=== PATIENT | female | born 1995 | race Caucasian/White ===

== ENCOUNTER 2021-01-31 14:39 | Outpatient (CLI) | payer OTHER, SELFPAY ==
--- NOTE | ~2021-01-31 | XR_ITS ---
EXAMINATION: XR ankle RT 2V DATE: 01/31/2021 14:57 INDICATION: Right ankle pain. TECHNIQUE: 2 views of right ankle were obtained. COMPARISON: None. FINDINGS: Bone alignment is normal. No fracture. Joint spaces are well maintained. IMPRESSION: 1. Normal right ankle. Reviewed, dictated and finalized at location A. IMPRESSION: 1. Normal right ankle.
== END 2021-01-31 14:40 | disposition home or self-care (01) ==
PROVIDERS: PCP Nurse Practitioner Family; Visit Provider Nurse Practitioner Family
DX: M25.571 Pain in right ankle and joints of right foot (principal)
CPT/HCPCS: 73600

== ENCOUNTER 2021-04-19 11:43 | Outpatient (CLI) | payer OTHER, SELFPAY ==
[2021-04-23 13:03] LABS: SARS-CoV-2 RNA PCR Negative (Negative)
== END 2021-04-19 11:44 | disposition home or self-care (01) ==
LOC: CHSLAB 11:45
PROVIDERS: PCP Nurse Practitioner Family; Visit Provider Nurse Practitioner Family
DX: Z20.822 Contact with and (suspected) exposure to COVID-19 (principal)
CPT/HCPCS: C9803; U0003; U0005

== ENCOUNTER 2022-12-12 12:14 | Outpatient (NON) | payer OTHER, SELFPAY ==
[2022-12-12 12:27] LABS: Appearance Urine Clear (Clear); Bilirubin Urine Negative (Negative); Blood Urine Negative (Negative); Color Urine Light Yellow (Yellow); Glucose Urine UA Negative (Negative); Ketones Urine Negative (Negative); Leukocyte Esterase Ur Trace LEU/UL (Negative); Nitrate Urine Negative (Negative); Protein Urine Negative (Negative); Urobilinogen Urine 0.2 mg/dL (0.2-1.0); pH Urine 6.5 (5.0-8.0)
[2022-12-12 12:35] LABS: Add Urine Microscopic? YES; Bacteria Urine None seen /hpf; RBC Urine 0-2 /hpf (0-2); Squamous Epithelial Cell Urine Few /hpf (Few); WBC Urine 0-3 /hpf (0-3)
== END 2022-12-12 12:15 | disposition home or self-care (01) ==
LOC: CHSLAB 12:17
PROVIDERS: Visit Provider Nurse Practitioner Family
DX: N89.8 Other specified noninflammatory disorders of vagina (principal); N39.0 Urinary tract infection, site not specified
CPT/HCPCS: 81001; 87070

== ENCOUNTER 2023-07-18 09:44 | Emergency (ER) | payer OTHER, SELFPAY ==
[2023-07-18 09:58] VITALS: BP 114/80; PULSE 98; RESP 16; TEMP 36.7; O2SAT 100
--- NOTE | 2023-07-18 10:06 | ED.URI ---
HPI - URI/Sore Throat General Chief Complaint: Upper Respiratory Infection Stated Complaint: UPPER RESP SYMPTOMS Source: patient Mode of arrival: ambulatory Limitations: no limitations History of Present Illness HPI Narrative: 27-year-old female presented for complaint of sinus pressure and congestion along with cough for 3 weeks. She endorses feeling better for few days but symptoms returned this week. Cough is productive of yellow sputum. Endorses occasional ear pressure and headache. Taking Tylenol cold and Sinus for symptoms. Denies sick contacts. Patient returned from [facility] with GI infection prior to symptom onset. Denies sob, wheezing, n/v/d/f/c. Related Data Allergies Allergy/AdvReac Type Severity Reaction Status Date / Time No Known Allergies Allergy Verified 07/18/23 09:57 Review of Systems Review of Systems: CONSTITUTIONAL: Denies body aches, fever, chills, or sweats. EYES: Denies visual changes, redness, or discharge. ENT: Reports rhinorrhea, congestion, Denies sore throat, or otalgia. CARDIOVASCULAR: Denies chest pain, palpitations, or edema. RESPIRATORY: Reports cough, denies sob, wheezing. GASTROINTESTINAL: Denies abdominal pain, nausea, vomiting, or diarrhea. GENITOURINARY: Denies dysuria or hematuria. SKIN: Denies rash, itching, or wounds. MUSCULOSKELETAL: Denies back pain, joint pain, or myalgia. NEUROLOGIC: Denies headache, numbness, tingling, or weakness. PSYCH: Denies depression or anxiety. All systems reviewed & are unremarkable except as noted in HPI and below PMFSH Past Medical History Medical History Anxiety Herpes Kyphosis Pre-eclampsia Family History Family History Grandparent Macular degeneration Arthritis Social History Social History Smoking status: Never smoker Second hand tobacco smoke exposure: No Substance use: never Gender identity (if verbalized by the patient): Female Spiritual care concerns: No Comments At time of signature, I have reviewed and agree with nursing past medical, surgical, social and family history unless otherwise noted. Please see nursing chart for further information. There is no relevant family history pertinent to the presenting complaint Exam Narrative: GENERAL: Well-appearing, in no acute distress. EYES: EOMI. No redness or drainage. Conjunctivae normal. ENT: Mucous membranes pink and moist. No rhinorrhea. TMs normal bilaterally. Throat normal. Uvula midline. NECK: Normal AROM. Supple. CHEST: No respiratory distress. Lungs clear to all sanchez. HEART: Regular rate and rhythm. No murmur appreciated. ABDOMEN: Soft, nontender, nondistended, normal active bowel sounds. EXTREMITIES: Normal range of motion. No edema. SKIN: Warm, dry, no rash. Capillary refill normal. Normal skin turgor. NEURO: Alert and oriented x3. Gait steady. PSYCH: Normal affect. Course Course Emergency Course: Patient is aware of diagnosis, understands and agrees to treatment plan. Anticipatory guidance given. Patient agrees to follow-up as directed and is aware of reasons to seek care at the emergency department. Portions of this record may have been created with voice recognition software Level of Care: Express Care Visit Vital Signs Vital signs: Vital Signs Temperature 98.1 F 07/18/23 09:58 Pulse Rate 98 07/18/23 09:58 Respiratory Rate 16 07/18/23 09:58 Blood Pressure 114/80 07/18/23 09:58 Pulse Oximetry 100 07/18/23 09:58 Temperature 98.1 F 07/18/23 09:58 Pulse Rate 98 07/18/23 09:58 Respiratory Rate 16 07/18/23 09:58 Blood Pressure 114/80 07/18/23 09:58 Pulse Oximetry 100 07/18/23 09:58 MDM - URI/Sore Throat MDM Narrative Medical decision making narrative: Discussed physical exam findings. Advised supp
== END 2023-07-18 10:20 | disposition home or self-care (01) ==
PROVIDERS: Emergency Provider Nurse Practitioner Family; PCP Family Medicine
DX: J06.9 Acute upper respiratory infection, unspecified (principal)
CPT/HCPCS: 99213; G0463

== ENCOUNTER 2024-06-27 09:26 | Outpatient (CLI) | payer OTHER, SELFPAY ==
[2024-06-27 10:23] LABS: Alanine Aminotransferase 28 U/L (14-59); Albumin Level 3.8 g/dL (3.4-5.0); Alkaline Phosphatase 61 U/L (46-116); Anion Gap 10 mmol/L (4-12); Aspartate Amino Transferase 12 U/L (15-37); Bilirubin,Total 1.4 mg/dL (0.00-1.00); Blood Urea Nitrogen 14 mg/dL (7-18); Carbon Dioxide 27 mmol/L (21-32); Chloride 106 mmol/L (98-108); Estimated Glomerular Filt Rate > 60; Glucose 85 mg/dL (70-99); Osmolality Calculated 295 mOsm/kg (285-295); Potassium 4.9 mmol/L (3.5-5.1); Sodium 143 mmol/L (136-145); Total Protein 6.8 g/dL (6.4-8.2)
== END 2024-06-27 09:27 | disposition home or self-care (01) ==
LOC: CHSLAB 09:28
PROVIDERS: PCP Nurse Practitioner Family; Visit Provider Nurse Practitioner Family
DX: R17 Unspecified jaundice (principal)
CPT/HCPCS: 36415; 80053

== ENCOUNTER 2024-09-16 07:53 | Outpatient (CLI) | payer OTHER, SELFPAY ==
--- NOTE | ~2024-09-16 | US_ITS ---
US abdomen complete EXAMINATION: US Abdomen Complete INDICATION: Jaundice. PROCEDURE: Realtime High Resolution abdomen ultrasound. COMPARISON: No prior studies for comparison FINDINGS: Gallbladder within normal limits. No gallstones, pericholecystic fluid, gallbladder wall t hickening or biliary dilatation. Common bile duct measures 4 mm. Liver echotexture within normal limits without focal mass. Pancreatic head appears prominent, althoug h no discrete mass identified.. Spleen is unremarkeable. Renal echotexture is within normal limits b ilaterally without hydronephrosis, contour deforming mass or renal stone. Right kidney measures 10.3 cm. Left kidney measures 10.8 cm. Visualized aspects of the aorta and IVC are within normal limits. Portal vein is patent. No sonograph ic Moore's sign indicated by the technologist. IMPRESSION: 1: Normal abdominal ultrasound. Reviewed, dictated and finalized at location A. 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
== END 2024-09-16 07:54 | disposition home or self-care (01) ==
LOC: CHSIMG 07:54
PROVIDERS: PCP Nurse Practitioner Family; Visit Provider Nurse Practitioner Family
DX: R11.0 Nausea (principal); R17 Unspecified jaundice
CPT/HCPCS: 76700

== ENCOUNTER 2024-09-26 08:53 | Outpatient (CLI) | payer OTHER, SELFPAY ==
[2024-09-26 09:09] LABS: Hematocrit 45.5 % (35.0-49.0); Hemoglobin 15.1 g/dL (12.0-15.0); Mean Corpuscular HGB Conc 33.2 g/dL (32-36); Mean Corpuscular Volume 87.5 fL (78.0-102.0); Mean Platelet Volume 9.4 fl (9.2-11.8); Platelet Count Result 256 K/mm3 (150-420); Red Cell Distribution Width 12.5 % (11.6-14.4); White Blood Count 5.4 K/mm3 (4.8-10.8)
--- OUTSIDE RECORDS SUMMARY | 2024-09-26 09:18 | XMS_ITS | Data Portability ---
Author Organization [facility] Address [address] [place] [address] Care Team Providers Care Uniform Force Captain Name Role Phone EVON LO Primary Care Provider Assessment Encounter Date Assessment Date Assessment LastModified by Organization Details LastModified Time 10/29/2020 10/29/2020 Annual gynecological exam performed. Patient will come back in a year unless there are new symptoms. [email or web address] Not available 10/25/2020 11:39:19 Plan of Treatment Reminders Order Date Submit Date Provider Last Modified By Organization Details Last Modified Time Details Appointments None recorded. Lab CMP, serum or plasma 2020 021 [facility] (Lab), [address] [place], [address], 21:43:10 CBC 2020 021 [facility] (Lab), [address] [place], [address], 2 05:00:31 lipid panel, serum 2020 021 [facility] (Lab), [address] [place], [address], 1 15:31:18 TSH, serum or plasma 2020 021 [facility] (Lab), [address] [place], [address], 2 05:00:31 vitamin D, 25-hydroxy, total, serum 2020 [facility] (Lab), [address], [place], [address], 21:43:12 Referral None recorded. Procedures None recorded. Surgeries None recorded. Imaging US, transvagina l 2020 [facility], [facility] [address], [address], [place], [address], 14:49:49 Medication Orders None recorded. Patient TargetsNo targets recorded. Patient InstructionsNo instructions recorded. Reason for Referral None Reported. Results Created Date Observation Date Name Description Value Unit Range Abnormal Flag Note LastModifiedBy Organization Detail LastModifiedTime 10/30/1910/29/2020 image guide d Pap, refle x HPV if ASCUS only image guided Pap, reflex HPV ASCUS only SEE RESULT S BELOW CASE REPOR T: Cytol ogy Gynec ologi felicitas Repor t Case: [id number] Autho carlos g Provi luis e: Jessica Bass, JEFF Colle cted: 10/29 0956 Order ing Locat ion: [place] Patho logy Recei patience: 10/30 1533 First Scree n: Hellen Fong , CT Speci men: Scree chico Pap - Image d, Cervi x STATE MENT OF ADEQU ACY: Satis facto ry for evalu ation Trans forma tion zone compo nent prese nt FINAL DIAGN OSIS: Negat shila for Intra epith elial Lesio n or Jeyson rader (NIL) Funga l organ isms morph ologi ruth ann consi stent with Mari da spp Elect adilene martinez deborah d by Hellen Fong CT on 021 at 2:18 PM ----- ----- ----- ----- ----- ----- ----- ----- ----- ----- ----- ----- ----- ----- ----- ----- ----- ----- - CHART ABLE COMME NT: Note: This speci men was revie wed by a Cytot echno logis t and/o r Patho logis t (as indic ated in this repor t) after evalu ation using the Thinp rep Imagi ng Syste m. CLINI FELICITAS INFOR MATIO N: Menst rual Statu s: LMP (if appli cable ): Clini felicitas Histo ry/Pr eviou s Pap: Type of Neopl serena (if appli cable ): Other Histo ry: Hormo ale (if appli cable ): PAP EDUCA ROSA MARAI L NOTE: The Pap Test is a scree chico test with an inher ent false negat shila rate. Liqui d-bas e sampl ing may decre ase, but will not elimi noah, false negat shila resul ts. A negat shila resul t does not precl ude the prese nce and/o r devel opmen t of disea se, since the prese nce of abnor mal cells in the sampl e depen ds on the locat ion of the lesio n and sampl ing techn ique. Lucie nued regul ar scree chico is the best metho d of cance r preve ntion . If repor vin cytol ogic findi ng do not corre late with physi feilcitas and/o r histo rical findi ngs, furth er inves tigat ion is recom cameron d, as clini ruth ann russ nted. Not Available [facility] (Lab) [address] [facility], [place], [address], 10/31/2020 15:21:01 10/31/19 21 10/30/2020 vitam in D, 25-oh (tota l D2/D3 ) vitamin D, 25-hydroxy, total 25.5 NG/mL 30-80 low NOTE: Defic iency : <20 ng/mL Insuf ficie ncy: 20-29 ng/mL Optim um Level : 30-80 ng/mL Possi ble Toxic ity: >80 ng/mL Most patie nts with toxic ity have level s >150 ng/mL . Not Available [facility] (Lab) [address], [address], 10/31/2020 21:43:12 10/31/19 21 10/30/2020 CMP(c ompre hensi ve metab olic panel ) sodium 140 mmol/ L 136-14 5 Not Available [facility] (Lab) [address], [address], 10/31/2020 21:43:10 10/31/19 21 10/30/2020 CMP(c ompre hensi ve metab olic panel ) potassium 4.3 mmol/ L 3.5-5. 3 Not Available [facility] (Lab) [facility] [address] [place], [address], 10/31/2020 21:43:10 10/31/19 21 10/30/2020 CMP(c ompre hensi ve metab olic panel ) chloride 103 mmol/ L 98-107 Not Available [facility] (Lab) [address] [place], [address], 10/31/2020 21:43:10 10/31/19 21 10/30/2020 CMP(c ompre hensi ve metab olic panel ) carbon dioxide 26 mmol/ L 23-31 Not Available [facility] (Lab) [address] [place], [address], 10/31/2020 21:43:10 10/31/19 21 10/30/2020 CMP(c ompre hensi ve metab olic panel ) anion gap 11 mmol/ L 8-16 Not Available [facility] (Lab) [address] [place], [address], 10/31/2020 21:43:10 10/31/19 21 10/30/2020 CMP(c ompre hensi ve metab olic panel ) blood urea nitrogen 14 mg/dL (based on legal sex) 6-20 Not Available [facility] (Lab) [address], [place], [address], 10/31/2020 21:43:10 10/31/19 21 10/30/2020 CMP(c ompre hensi ve metab olic panel ) creatinine 0.80 mg/dL (based on legal sex) .5-1.2 Not Available [facility] (Lab) [address] [place], [address], 10/31/2020 21:43:10 10/31/19 21 10/30/2020 CMP(c ompre hensi ve metab olic panel ) GFR () 104 mL/mi n/1.7 3_m2 60-300 Not Available [facility] (Lab) [address], [place], [address], 10/31/2020 21:43:10 10/31/19 21 10/30/2020 CMP(c ompre hensi ve metab olic panel ) GFR (others) 86 mL/mi n/1.7 3_m2 60-300 Not Available [facility] (Lab) [address] [place], [address], 10/31/2020 21:43:10 10/31/19 21 10/30/2020 CMP(c ompre hensi ve metab olic panel ) calcium 9.2 mg/dL 8.4-10 .5 Not Available [facility] (Lab) [address], [place], [address], 10/31/2020 21:43:10 10/31/19 21 10/30/2020 CMP(c ompre hensi ve metab olic panel ) glucose 74 mg/dL 70-99 Not Available [facility]) [address] [place], [address], 10/31/2020 21:43:10 10/31/19 21 10/30/2020 CMP(c ompre hensi ve metab olic panel ) protein, total 6.4 g/dL 6.0-8. 3 Not Available [facility] ([facility]) [address], [place], [address], 10/31/2020 21:43:10 10/31/19 21 10/30/2020 CMP(c ompre hensi ve metab olic panel ) albumin 4.6 g/dL 3.5-5. 0 Not Available [facility] ([facility]) [address] [place], [address], 10/31/2020 21:43:10 10/31/19 21 10/30/2020 CMP(c ompre hensi ve metab olic panel ) ALT 14 units /L 9-43 Not Available [facility] ([facility]) [address], [place], [address], 10/31/2020 21:43:10 10/31/19 21 10/30/2020 CMP(c ompre hensi ve metab olic panel ) alkaline phosphatase 74 units /L 35-129 Not Available [facility] ([facility]) [address], [place], [address], 10/31/2020 21:43:10 10/31/19 21 10/30/2020 CMP(c ompre hensi ve metab olic panel ) AST 19 units /L (based on docume nted legal sex) 11-32 Not Available [facility] ([facility]) [address] [place], [address], 10/31/2020 21:43:10 10/31/19 21 10/30/2020 CMP(c ompre hensi ve metab olic panel ) bilirubin, total 1.6 mg/dL 0.0-1. 0 high Not Available [facility] (Lab) [address], [place], [address], 10/31/2020 21:43:10 10/31/19 21 10/30/2020 TSH TSH 1.54 uIU/m L 0.30-5 .00 Not Available [facility] (Lab) [address], [place], [address], 10/31/2020 21:20:56 10/31/19 21 10/30/2020 lipid panel , blood total cholesterol 163 mg/dL 0-199 Not Available [facility] (Lab) [address], [place], [address], 10/31/2020 21:13:52 10/31/19 21 10/30/2020 lipid panel , blood triglyceride s 81 mg/dL 0-150 NCEP Refer ence Value s for Trigl yceri tammie: Prabha l: <150 mg/dL Borde rline High: 150 - 199 mg/dL High: 200 - 499 mg/dL Very High: >/= 500 mg/dL Not Available [facility] (Lab) [address], [place], [address], 10/31/2020 21:13:52 10/31/19 21 10/30/2020 lipid panel , blood HDL cholesterol 50 mg/dL 40-240 Not Available [facility] (Lab) [address], [place], [address], 10/31/2020 21:13:52 10/31/19 21 10/30/2020 lipid panel , blood LDL cholesterol 97 mg/dL 0-99 Cutof f value s recom cameron d by the Natio nal Aminata stero l Educa tion Progr am: XOCHITL ABLE: Aminata stero l <200 mg/dL LDL <100 mg/dL BORDE RLINE : Aminata stero l 200-2 39 mg/dL LDL 101-1 59 mg/dL HIGHE R RISK: Aminata stero l >240 mg/dL LDL >160 mg/dL , HDL <40 mg/dL Not Available [facility] (Lab) [facility] [address], [place], [address], 10/31/2020 21:13:52 10/31/19 21 10/30/2020 lipid panel , blood non-HDL cholesterol 113 mg/dL 0-129 A reaso nable goal for non-H DL aminata stero l is one that is 30 mg/dL highe r than the LDL aminata stero l goal. Not Available [facility] (Lab) [facility] [address], [place], [address], 10/31/2020 21:13:52 10/31/19 21 10/30/2020 lipid panel , blood chol/HDL ratio 3.3 . 0.0-5. 0 Not Available [facility] (Lab) [address], [place], [address], 10/31/2020 21:13:52 10/31/19 21 10/30/2020 CBC w/ auto diff WBC 5.5 10'3/ uL 3.6-10 .2 Not Available [facility] (Lab) [facility] [address] [place], [address], 10/31/2020 08:54:47 10/31/19 21 10/30/2020 CBC w/ auto diff RBC 4.90 10'6/ uL (based on docume nted legal sex) 4.10-5 .30 Not Available [facility] (Lab) [facility] [address], [place], [address], 10/31/2020 08:54:47 10/31/19 21 10/30/2020 CBC w/ auto diff HGB 14.3 g/dL (based on docume nted legal sex) 11.9-1 5.8 Not Available [facility] (Lab) [address] [place], [address], 10/31/2020 08:54:47 10/31/19 21 10/30/2020 CBC w/ auto diff HCT 45.3 % (based on docume nted legal sex) 37.4-4 8.3 Not Available [facility] (Lab) [address] [place], [address], 10/31/2020 08:54:47 10/31/19 21 10/30/2020 CBC w/ auto diff MCV 92.0 fL 82.0-9 9.0 Not Available [facility] (Lab) [address] [place], [address], 10/31/2020 08:54:47 10/31/19 21 10/30/2020 CBC w/ auto diff MCH 29.0 pg 27.0-3 3.0 Not Available [facility] (Lab) [address] [place], [address], 10/31/2020 08:54:47 10/31/19 21 10/30/2020 CBC w/ auto diff MCHC 32.0 g/dL 32.0-3 6.0 Not Available [facility] (Lab) [address] [place], [address], 10/31/2020 08:54:47 10/31/19 21 10/30/2020 CBC w/ auto diff RDW 13.0 % 11.0-1 5.0 Not Available [facility] ([facility]) [address] [place], [address], 10/31/2020 08:54:47 10/31/19 21 10/30/2020 CBC w/ auto diff plt 242 10'3/ uL 150-45 0 Not Available [facility] ([facility]) [address] [place], [address], 10/31/2020 08:54:47 10/31/19 21 10/30/2020 CBC w/ auto diff MPV 10.8 fL Not Available [facility] ([facility]) [address] [place], [address], 10/31/2020 08:54:47 10/31/19 21 10/30/2020 CBC w/ auto diff NRBC's 0.00 % 0 Not Available [facility] ([facility]) [address] [place], [address], 10/31/2020 08:54:47 10/31/19 21 10/30/2020 CBC w/ auto diff absolute NRBCs 0.0 10'3/ uL 0 Not Available [facility] (Lab) [address] [place], [address], 10/31/2020 08:54:47 10/31/19 21 10/30/2020 CBC w/ auto diff neutrophils 51.0 % 37.0-7 2.0 Not Available [facility] ([facility]) [address] [place], [address], 10/31/2020 08:54:47 10/31/19 21 10/30/2020 CBC w/ auto diff lymphocytes 37.0 % 16.0-4 8.0 Not Available [facility] ([facility]) [facility] [address], [place], [address], 10/31/2020 08:54:47 10/31/19 21 10/30/2020 CBC w/ auto diff monocytes 9.0 % 4.0-14 .0 Not Available [facility] (Lab) [address], [place], [address], 10/31/2020 08:54:47 10/31/19 21 10/30/2020 CBC w/ auto diff eosinophils 2.0 % 0.0-9. 0 Not Available [facility] (Lab) [address], [place], [address], 10/31/2020 08:54:47 10/31/19 21 10/30/2020 CBC w/ auto diff basophils 1.0 % 0.0-2. 0 Not Available [facility] (Lab) [address] [place], [address], 10/31/2020 08:54:47 10/31/19 21 10/30/2020 CBC w/ auto diff immature granulocytes 0.0 % no define d refere nce range Not Available [facility] (Lab) [address] [place], [address], 10/31/2020 08:54:47 10/31/19 21 10/30/2020 CBC w/ auto diff absolute neutrophils 2.8 10'3/ uL 1.1-6. 0 Not Available [facility] (Lab) [address] [place], [address], 10/31/2020 08:54:47 10/31/19 21 10/30/2020 CBC w/ auto diff absolute lymphocytes 2.1 10'3/ uL 0.7-3. 4 Not Available [facility] (Lab) [address] [place], [address], 10/31/2020 08:54:47 10/31/19 21 10/30/2020 CBC w/ auto diff absolute monocytes 0.5 10'3/ uL 0.3-1. 0 Not Available [facility] (Lab) [address] [place], [address], 10/31/2020 08:54:47 10/31/19 21 10/30/2020 CBC w/ auto diff absolute eosinophils 0.1 10'3/ uL 0.0-0. 6 Not Available [facility] (Lab) [address] [place], [address], 10/31/2020 08:54:47 10/31/19 21 10/30/2020 CBC w/ auto diff absolute basophils 0.0 10'3/ uL 0.0-0. 1 Not Available [facility] (Lab) [address] [place], [address], 10/31/2020 08:54:47 10/31/19 21 10/30/2020 CBC w/ auto diff absolute immature granulocytes 0.00 10'3/ uL 0.00-0 .10 021 7:51 AM: P indic ates parti al resul ts on a panel have been relea sed. Addit ional resul ts will follo w. 021 7:51 AM: This resul t has been final verif ied. No addit ional or guy ed resul ts are expec vin. Not Available [facility] (Lab) [address] [place], [address], 10/31/2020 08:54:47 12/24/19 22 12/23/2021 IMAGE GUIDE D PAP, REFLE X HPV IF ASCUS ONLY image guided Pap, reflex HPV ASCUS only SEE RESULT S BELOW CASE REPOR T: Cytol ogy Gynec ologi felicitas Repor t Case: [id number] Autho carlos delgado Provi luis e: Jessica Bass, JEFF Colle cted: 12/23 1628 Order ing Locat ion: [place] Patho tashia Recei patience: 12/24 0148 First Scree n: Marcelo anders, Juan atkins, CT Speci men: Scree chico Pap - Image d, Cervi x STATE MENT OF ADEQU ACY: Satis facto ry for evalu ation Trans forma tion zone compo nent prese nt FINAL DIAGN OSIS: Negat shila for Intra epith elial Lesio n or Jeyson rader (NIL) . Elect libertydebbie martinez deborah d by Marcelo anders, Juan atkins, CT on 022 at 1:32 PM ----- ----- ----- ----- ----- ----- ----- ----- ----- ----- ----- ----- ----- ----- ----- ----- ----- ---- COMME NT: Note: This speci men was revie wed by a Cytot echno logis t and/o r Patho logis t (as indic ated in this repor t) after evalu ation using the Thinp rep Imagi ng Syste m. CLINI FELICITAS INFOR MATIO N: Menst rual Statu s: LMP (if appli cable ): Clini felicitas Histo ry/Pr eviou s Pap: Type of Neopl serena (if appli cable ): Signi fican t Clini felicitas Findi ngs: Other Histo ry: Hormo ale (if appli cable ): PAP EDUCA ROSA MARIA L NOTE: The Pap Test is a scree chico test with an inher ent false negat shila rate. Liqui d-bas ed sampl ing may decre ase, but will not elimi noah, false negat shila resul ts. A negat shila resul t does not precl ude the prese nce and/o r devel opmen t of disea se, since the prese nce of abnor mal cells in the sampl e depen ds on the locat ion of the lesio n and sampl ing techn ique. Lucie nued regul ar scree chico is the best metho d of cance r preve ntion . If repor vin cytol ogic findi ng do not corre late with physi felicitas and/o r histo rical findi ngs, furth er inves tigat ion is recom cameron d, as clini ruth ann russ nted. Not Available [facility] (Lab) [address], [place], [address], 12/30/2021 14:35:30 10/31/19 21 US, trans vagin al No observ ation record ed. TULIO [address], [facility], [place], [address], 11/05/2020 04:20:57 Result Notes None recorded. Problems Name Problem SNOMED Code Status Onset Date Resolution Date Notes Provider Name and Address Organization Details Recorded Time Normal pregnanc y in multigra david [id number] Completed 201910/25/2020 Encounte r for suprvsn of normal pregnanc y, third trimeste r;Deshawn ce ID: 0001 Shani diaz, [facility] 11:38:03 Educatio n Completed 201910/25/2020 Encounte r for oth general cnsl and advice on contrace ption;Pr actice ID: 0001 Shani diaz [facility] 11:37:54 Lochia finding Completed 201910/25/2020 Encounte r for routine postpart um follow-u p;Practi ce ID: 0001 Shani diaz [facility] 11:38:01 Insertio n of intraute rine contrace ptive device Completed 201910/25/2020 Encounte r for insertio n of intraute rine contrace ptive device;P ractice ID: 0001 Shani diaz, [facility] 1 11:38:00 Clinical finding Completed 201910/25/2020 Presence of (intraut erine) contrace ptive device;P ractice ID: 0001 Shani diaz, [facility] 11:37:52 Pregnanc y, childbir th and puerperi um finding Completed 201510/25/2020 Encntr for suprvsn of normal first preg, third trimeste r;Record ed Elsewher e: No Locat ion: [facility] S ource: EHR Sap Bobj Developer poppy: N Carltonti ce ID: 0001 Elvin lable Time: 11:45:00 AM Shani diaz, [facility] 11:38:11 Pregnanc y detectio n examinat ion Completed 201410/25/2020 Encounte r for pregnanc y test, result positive ;Recorde d Elsewher e: No Locat ion: [facility] S ource: EHR Sap Bobj Developer poppy: N Carltonti ce ID: 0001 Elvin lable Time: 10:00:00 AM Shani diaz, [facility] 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 11:38:19 Pregnanc y, childbir th and puerperi um finding Completed 201510/25/2020 Encounte r for supervis ion of normal first pregnanc y, second trimeste r;Record ed Elsewher e: No Locat ion: [facility] S ource: EHR Sap Bobj Developer poppy: N Carltonti ce ID: 0001 Elvin lable Time: 09:30:00 AM Shani diaz [facility] 11:38:09 Antenata l screenin g Completed 201810/25/2020 Encounte r for antenata l screenin g for nuchal transluc ency;Rec orded Elsewher e: No Locat ion: [facility] S ource: [facility] Campuso poppy: N Practi ce ID: 0001 Elvin lable Time: 08:15:00 AM Shani diaz [facility] 11:37:25 Genital herpes simplex [id number] Completed 201310/25/2020 Genital herpes;R ecorded Elsewher e: No Locat ion: [facility] S ource: [facility] Campuso poppy: N Carltonti ce ID: 0001 Elvin lable Time: 11:00:00 AM Shani diaz, [facility] 11:47:32 Pregnanc y-induce d hyperten tamiko Completed 201510/25/2020 Gestatio nal [pregnan cy-induc ed] hyperten tamiko without signific ant proteinu kady, unspecif ied trimeste r;Record ed Elsewher e: No Locat ion: [facility] S ource: [facility] Campuso poppy: N Carltonti ce ID: 0001 Elvin lable Time: 02:00:00 PM Shani diaz [facility] 11:38:13 Gestatio n period, 23 weeks [id number] Completed 201510/25/2020 23 weeks gestatio n of pregnanc y;Record ed Elsewher e: No Locat ion: [facility] S ource: [facility]uso poppy: N Practi ce ID: 0001 Elvin lable Time: 02:45:00 PM Shani diaz [facility] 11:37:[address] Concept Completed 201510/25/2020 Maternal care for oth abnormal ity and damage, unsp;Rec orded Elsewher e: No Locat ion: Jasmin miles [facility] S ource: EHR Sap Bobj Developer poppy: N Carltonti ce ID: 0001 Elvin lable Time: 02:45:00 PM Shani diaz, [facility] 1 11:38:17 Pregnanc y, childbir th and puerperi um finding Completed 201410/25/2020 Encounte r for supervis ion of normal first pregnanc y, first trimeste r;Record ed Elsewher e: No [facility] S ource: [facility]uso poppy: N Deshawn ce ID: 0001 Elvin lable Time: 04:00:00 PM Shani diaz, [facility] 11:38:07 Rubella screenin g status [id number] Completed 201810/25/2020 Encounte r for antenata l screenin g, unspecif ied;Eliceo rded Elsewher e: No [facility] S ource: EHR Sap Bobj Developer poppy: Nori Hess ce ID: 0001 Elvin lable Time: 09:30:00 AM Shani diaz, [facility] 11:38:15 Antenata l screenin g for malforma tion Completed 201810/25/2020 Encounte r for antenata l screenin g for malforma tions;Re corded Elsewher e: No [facility] S ource: EHR Sap Bobj Developer poppy: N Carltonti ce ID: 0001 Elvin lable Time: 08:15:00 AM Shani diaz, [facility] 11:37:50 Perineal lacerati on during delivery [id number] Completed 201510/25/2020 Perineal lacerati on during delivery , unspecif ied;Prac galileo ID: 0001 Shani diaz, [facility] 11:38:04 Single live [id number] Completed 201510/25/2020 Single live ;Pr actice ID: 0001 Shani Kolb emily, [facility] 11:38:16 Term pregnanc y delivere d 40657432 Completed 201910/25/2020 Encounte r for full-ter m uncompli cated delivery ;Practic e ID: 0001 Shani Kolb emily, [facility] 11:38:20 Gestatio n period, 39 weeks [id number] Completed 201910/25/2020 39 weeks gestatio n of pregnanc y;Practi ce ID: 0001 Shani Kolb emily, [facility] 11:37:58 Generali zed anxiety disorder 00716068 Active 2020 [facility]b [facility] 11:45:48 Herpes simplex 03149907 Completed 202010/25/2020 Shani Corteskarolina diaz [facility] 11:47:22 Genital herpes simplex 06780864 Active 2020 [facility] 11:47:32 Past pregnanc y history of pre-ecla mpsia [id number] 9100 Active 202001/17/20 16 Shani diaz [facility] 11:52:35 Notes:Scoliosis Problem Notes None recorded. Procedures Surgical History Date Name Laterality Status Provider Name and Address Organization Details Recorded Time 2 Date of Last Pap Smear completed Rolanda Sahu [facility] 12/23/2021 10:39:10 9 extraction of wisdom tooth completed Rolanda Sahu [place] [facility] 12/23/2021 10:40:39 Imaging Results Imaging Date Name Status LastModified by Organization Details LastModified Time 10/30/2020 US, transvaginal completed TULIO Urv[address], [place], [address], 11/05/2020 04:20:57 Procedure Notes None recorded. Medical Equipment None Reported. Allergies No known drug allergies Medications Name Sig Start Date Stop Date Status Note LastModified by Organization Details LastModified Time valacyclo vir 1 gram tablet take 1 tablet by oral route every 12 hours 02/08 completed Prescrib ed Elsewher e: No Locat ion: [facility] odify By: camille Roach r DateTime : 12/19/19 16 11:54:25 AM Not Available Not Available Not Available Diflucan 150 mg tablet take 1 tablet by oral route once 10/13 completed Prescrib ed Elsewher e: No [facility] By: abhinav Roach r DateTime : 07/21/20 19 09:00:00 AM Not Available Not Available Not Available acyclovir 400 mg tablet take 1 tablet by oral route every 12 hours 12/04 completed Prescrib ed Elsewher e: No [facility] odify By: abhinav Roach r DateTime : 08/29/20 19 11:15:00 AM Not Available Not Available Not Available valacyclo vir 500 mg tablet take 1 tablet by oral route 2 times every day 02/08 completed Prescrib ed Elsewher e: No Locat ion: [facility] odify By: camille Roach r DateTime : 01/02/20 16 09:15:00 AM Not Available Not Available Not Available amoxicill in 500 mg tablet take 1 tablet by oral route 3 times every day for 7 days 07/22 completed Prescrib ed Elsewher e: No Locat ion: [facility] odify By: armando Roach r DateTime : 07/13/20 02:37:59 PM Not Available Not Available Not Available Macrobid 100 mg capsule take 1 capsule by oral route every 12 hours with food 10/13 completed Prescrib ed Elsewher e: No Locat ion: [facility] odify By: abhinav Roach r DateTime : 05/16/20 19 02:10:46 PM Not Available Not Available Not Available Norvasc 5 mg tablet take 1 tablet by oral route every day 02/08 completed Prescrib ed Elsewher e: No Locat ion: [place] [facility] odify By: camille Roach r DateTime : 01/20/20 12:23:36 PM Not Available Not Available Not Available promethaz ine 25 mg tablet take 1 tablet by oral route every 4 - 6 hours as needed 01/22 completed Prescrib ed Elsewher e: No Locat ion: [place] [facility] odify By: roc Encouncarla r DateTime : 06/22/20 15 03:00:00 PM Not Available Not Available Not Available aspirin 81 mg chewable tablet chew 1 tablet by oral route every day 12/04 completed Prescrib ed Elsewher e: Yes Loca tion: [facility] odify By: abhinav Roach r DateTime : 05/10/20 09:30:00 AM Not Available Not Available Not Available ergocalci ferol (vitamin D2) 1,250 mcg (50,000 unit) capsule take 1 capsule by oral route every week 12/23 completed Not Available Not Available Not Available norethind kirstin (contrace ptive) 0.35 mg tablet take 1 tablet by oral route every day 02/08 completed Prescrib ed Elsewher e: No Locat ion: [place] odify By: camille Encounte r DateTime : 02/12/20 16 12:00:00 PM Not Available Not Available Not Available buspirone 15 mg tablet take 1 tablet by oral route 2 times every day 01/22 completed Prescrib ed Elsewher e: No Locat ion: [facility] odify By: roc Hillaryte r DateTime : 10/08/19 16 02:00:00 PM Not Available Not Available Not Available escitalop carlota 10 mg tablet 12/23 completed Not Available Not Available Not Available 12/23 completed Not Available Not Available Not Available PNV-DHA 27 mg iron-1 mg-300 mg capsule take 1 capsule by oral route every day 01/22 completed Prescrib ed Elsewher e: No [facility] By: roc Hillaryte r DateTime : 06/22/20 15 03:00:00 PM Not Available Not Available Not Available Trintelli x 20 mg tablet 12/23 completed Not Available Not Available Not Available 400 mcg chewable tablet 10/25 completed Not Available Not Available Not Available Vitals Date Recorded Body height Body mass index (BMI) Body weight Systolic blood pressure Diastolic blood pressure Provider Name and Address Organization Details Last Updated DateTime 10/29/2020 172.72 cm 19 kg/m2 57897.05 g 109 mm[Hg] 77 mm[Hg] Shani Kolb [facility] 1 10:19:34 Date Recorded Body height Body mass index (BMI) Body weight Systolic blood pressure Diastolic blood pressure Provider Name and Address Organization Details Last Updated DateTime 12/23/2021 172.72 cm 19.3 kg/m2 08119.23 g 101 mm[Hg] 62 mm[Hg] Rolanda Sahu [facility] 2 10:37:36 Social History Question Answer Notes LastModified by Organizat ion Details LastModified Time Tobacco Smoking Status Never Smoker Rolanda diaz [facility] 12/23/2021 10:38:25 Do You Have An Advance Directive? No [email or web address] Information not available 12/23/2021 What Is Your Level Of Alcohol Consumption? None Information not available 12/23/2021 Are You Blind Or Do You Have Difficulty Seeing? No [email or web address] Information not available 12/23/2021 What Is Your Level Of Caffeine Consumption? Occasional [email or web address] Information not available 12/23/2021 How Much Tobacco Do You Chew? None Information not available 12/23/2021 In The 14 Days Before Symptom Onset, Have You Had Close Contact With A Laboratory-confir med COVID-19 While That Case Was Ill? No [email or web address] Information not available 12/23/2021 In The 14 Days Before Symptom Onset, Have You Had Close Contact With A Person Who Is Under Investigation For COVID-19 While That Person Was Ill? No [email or web address] Information not available 12/23/2021 Have You Been To An Area Known To Be High Risk For COVID-19? Yes [email or web address] Information not available 12/23/2021 Are You Deaf Or Do You Have Serious Difficulty Hearing? No Information not available 12/23/2021 What Type Of Diet Are You Following? REGULAR [email or web address] Information not available 12/23/2021 What Is The Highest Grade Or Level Of School You Have Completed Or The Highest Degree You Have Received? [id number] [email or web address] Information not available 12/23/2021 What Is Your Occupation? [employer] [email or web address] Information not available 12/23/2021 Are There Any Guns Present In Your Home? No [email or web address] Information not available 12/23/2021 Do You Use Protection During Sex? No [email or web address] Information not available 12/23/2021 Do You Use Your Seat Belt Or Car Seat Routinely? Yes [email or web address] Information not available 12/23/2021 Do You Have Smoke And Carbon Monoxide Detectors In Your Home? Yes [email or web address] Information not available 12/23/2021 How Much Tobacco Do You Smoke? No [email or web address] Information not available 12/23/2021 Do You Feel Stressed (tense, Restless, Nervous, Or Anxious, Or Unable To Sleep At Night)? [id number] [email or web address] Information not available 12/23/2021 Do You Use Any Illicit Or Recreational Drugs? No [email or web address] Information not available 12/23/2021 Do You Use Sunscreen Routinely? Yes [email or web address] Information not available 12/23/2021 Have You Used IV Drugs? No [email or web address] Information not available 12/23/2021 Sex: Unknown Functional Status Question Answer Note LastModified by Organizat ion Details LastModified Time Do you have difficulty walking or climbing stairs? No [email or web address] Information not available 12/23/2021 Are you able to walk? [email or web address] Information not available 12/23/2021 Are you able to care for yourself? Yes Information not available 12/23/2021 Do you have difficulty dressing or bathing? No [email or web address] Information not available 12/23/2021 What is your exercise level? Moderate [email or web address] Information not available 12/23/2021 Mental Status None recorded. Family History Relationship Description Onset Age of this Age Resolved Age Notes LastModified by Organization Details LastModified Time Father No current problems or disability [email or web address] Not available 10/25 11:51:33 Mother No current problems or disability Not available 10/25 11:51:33 Mother Mesothelioma (malignant, clinical disorder) [email or web address] Not available 12/25 19:54:38 Medical History Condition Response Allergies (Food, seasonal, environmental ) N Other Y Drug/Latex Allergies/Reactions N Blood Transfusion N Breast Cancer N Dermatologic Disorders N Lung Disease N Defects or Inherited Disease N Breast Problem N Gestational Diabetes N Hematologic disorders N Anesthesia Complications N History of STI Y Deep Vein Thrombosis N Polycystic ovary syndrome N Anxiety Disorder Y Autoimmune disease N Arthritis N Polyps N Infertility N Acid Reflux (GERD) N History of abnormal pap N Cancer N Varicosities N Stroke N Neurologic/Epilepsy N Endometriosis N High Cholesterol N Fibromyalgia N Headaches N Kidney Disease N Heart Problems N Thyroid Problems N Kidney or Bladder Problems N GI Problems N Eating Disorder N Anemia N Art (IVF or FET) N Psychiatric Illness N Ovarian Cancer N Diabetes N Pulmonary (TB, Asthma) N Hepatitis/Liver Disease N No Past Medical History N Eczema N Urinary Tract Infection N Abuse/Domestic Violence N Asthma N Trauma/Violence N Depression/ depression Y Heart Disease N Pre-Eclampsia Y Hypertension N Osteoporosis N Thrombophilias N Gynecological History Statement/Question Response Abnormal Pap N Date of Last Mammogram Date of LMP 10/01/2019 On BCP's at Conception? N Was last menstrual period normal N STIs/STDs Y Current Control Method IUD Age at First Child 20 Sexually Active? Y IUD Date of DEXA bone scan Age of first menstrual cycle 12 Date of Last Pap Smear 12/23/2021 Sexual Problems? N Desired Control Method IUD LMP Approximate Obstetrics History GPAL:G 2 P 2 0 0 2 Type Value Full Term 2 Living 2 Total 2 Past Encounters Encounter ID Performer Location Encounter Start Date Encounter Closed Date Diagnosis/Indication Diagnosis SNOMED-CT Code Diagnosis ICD10 Code Diagnosis Note [id number] Jessica Aguilar [place] [address] [address] 10/29/2020 10:07:40 10/29/2020 13:55:37 Gynecologic examination 14507881 Z01.419 Take Calcium with Vitamin D 1200mg daily if not receiving in daily diet. It is strongly advised to have an annual flu shot and up can obtain at most pharmacies . If you have not had a TDap shot in the last 10 years you should obtain one as well. Discussed with patient & provided with informatio n regarding Gardisil vaccine to prevent the 4 strains for HPV that cause cervical cancer if under age 26. Encourage safe sexual practices, to use condoms and limit partners if not already in a monogamous relationsh ip. Do monthly self breast exams. Have mammogram yearly or every other year depending on family history. BRCA testing is now available for patients with strong genetic history of female cancer. If interested contact the office. Engage in daily exercise of low impact aerobic exercise 45-60 minutes 4-5 times weekly. Avoid tobacco and illicit drugs as well as using moderation with alcohol intake less than 1-2 8 oz beverages daily. This lifestyle behavior pattern will lead to less health conditions and longer life span. If BMI greater than 25 weight watchers or dietary consult advised. Unable to visualize IUD strings. U/S to be scheduled. Patient received above instructio ns, and questions have been answered. If you have any questions please call or respond to this email. Patient was made aware of the patient portal and may obtain a paper copy of today's plan if desired. Routine gy necologic examination done [id number] 9101 Z01.419 [id number] Kalpana Hess [place] [address] [address] 10/30/2020 09:27:06 10/30/2020 14:49:49 Mechanical complication of intrauterine contraceptive device [id number] T83.39XA [id number] Jessica Aguilar [place] [address] [address] 12/23/2021 10:26:29 12/24/2021 16:47:34 Gynecologic examination 40705452 Z01.419 Z11.51 Take Calcium with Vitamin D 1200mg daily if not receiving in daily diet. It is strongly advised to have an annual flu shot and up can obtain at most pharmacies . If you have not had a TDap shot in the last 10 years you should obtain one as well. Discussed with patient & provided with informatio n regarding Gardisil vaccine to prevent the 4 strains for HPV that cause cervical cancer if under age 26. Encourage safe sexual practices, to use condoms and limit partners if not already in a monogamous relationsh ip. Do monthly self breast exams. Have mammogram yearly or every other year depending on family history. BRCA testing is now available for patients with strong genetic history of female cancer. If interested contact the office. Engage in daily exercise of low impact aerobic exercise 45-60 minutes 4-5 times weekly. Avoid tobacco and illicit drugs as well as using moderation with alcohol intake less than 1-2 8 oz beverages daily. This lifestyle behavior pattern will lead to less health conditions and longer life span. If BMI greater than 25 weight watchers or dietary consult advised. Patient received above instructio ns, and questions have been answered. If you have any questions please call or respond to this email. Patient was made aware of the patient portal and may obtain a paper copy of today's plan if desired. Health Concerns Section Related Observation LastModified by Organization Detai ls LastModified Time None Recorded Concern Status LastModified by Organization Details LastModified Time None Recorded Advance Directives Directive N: Payers Encounter Date Sequence Insurance Name Policy Number Policy Florian Covered Member ID Florian Member ID Guarantor Name 10/29/2020 1 [facility] [id number] Severino Smithwith [id number] Preeti Alley 10/30/2020 1 [facility] [id number] Severino Smithwith [id number] Preeti Alley 12/23/2021 1 [place] [id number] Severino Hager [id number] Preeti Hager Notes Date Note Type Note Provider Name and Address Organization Details Recorded Time 10/29/2020 text/html Annual GYNReport ed bypatient.Menstrua l cycle:Normal menses Urinary symptoms:No hematuria; No incontinence Vulva:No genital lesion Vagina:Normal vaginal discharge Breast:No breast pain; No breast lump; No nipple discharge Sexual complaints:No sexual complaints; No pain during intercourse; Normal libido Menopausal Symptoms:No menopausal symptoms; Normal vaginal lubrication Psychological symptoms:No depression; No anxiety; No PMDD Jessica diaz [facility] 10/29/2020 10:40:35 12/23/2021 text/html Annual GYNReport ed bypatient.Menstrua l cycle:amenorrhea d/t IUD Urinary symptoms:No hematuria; No incontinence Vulva:No genital lesion Vagina:Normal vaginal discharge Breast:No breast pain; No breast lump; No nipple discharge Sexual complaints:No sexual complaints; No pain during intercourse; Normal libido Menopausal Symptoms:No menopausal symptoms; Normal vaginal lubrication Psychological symptoms:No depression; No anxiety; No PMDD Jessica diaz [facility] 12/25/2021 06:52:08 OBGyn Episode Ob Episode Information Episode Created Date Number of Fetuses Patient Bloodtype Patient rh Status Prepregnancy Weight lbs Domestic Partner Domestic Partner Phone Father Name Specialist Managers Status 10/25/19 21 1 CLOSED Fetus Data First Name Last Name Admitted to NICU Weight (g) Sex Living Outcome Pediatric Complications Fetus ID Race Codes Race Delivery Type 3515.33 8 M Full Term [id number] Vaginal Delivery Darrius Calculation Initial Darrius Date Initial Exam Date Initial Exam Provider Initial Ultrasound Date Last Menstrual Period Date Ultra Sound Weeks Gestation 0 Eighteen To Twenty Week Darrius Update Ultra Sound Date Fundal Height At Umbil Quickening Date Ultra Sound Latest Weeks Gestation Final Darrius Confirmed By Final Darrius Confirmed Date Final Darrius Date Ultra Sound Latest Days Gestation 0 0 Menstrual History Last Menstrual Date Menses Monthly On Bcp Conception Prior Menses Frequency Hcg Plus Date Menarche Onset Age Delivery Information Delivery Date Delivery Type Labor Anesthesia Weeks Gestation Incision Type Labor Labor Length Hrs Delivered By Post Complications Tubal Sterilization Discharge Date Comments 6 38 Pre-Ecla m psia Discharge Information Feeding Method Contraceptive Method Maternal HG B and HCT Levels Ob Episode Information Episode Created Date Number of Fetuses Patient Bloodtype Patient rh Status Prepregnancy Weight lbs Domestic Partner Domestic Partner Phone Father Name Specialist Managers Status 10/25/19 21 1 CLOSED Fetus Data First Name Last Name Admitted to NICU Weight (g) Sex Living Outcome Pediatric Complications Fetus ID Race Codes Race Delivery Type 3401.94 M Full Term [id number] Vaginal Delivery Darrius Calculation Initial Darrius Date Initial Exam Date Initial Exam Provider Initial Ultrasound Date Last Menstrual Period Date Ultra Sound Weeks Gestation 0 Eighteen To Twenty Week Darrius Update Ultra Sound Date Fundal Height At Umbil Quickening Date Ultra Sound Latest Weeks Gestation Final Darrius Confirmed By Final Darrius Confirmed Date Final Darrius Date Ultra Sound Latest Days Gestation 0 0 Menstrual History Last Menstrual Date Menses Monthly On Bcp Conception Prior Menses Frequency Hcg Plus Date Menarche Onset Age Delivery Information Delivery Date Delivery Type Labor Anesthesia Weeks Gestation Incision Type Labor Labor Length Hrs Delivered By Post Complications Tubal Sterilization Discharge Date Comments 0 39 Discharge Information Feeding Method Contraceptive Method Maternal HG B and HCT Levels
[2024-09-26 09:45] LABS: Alanine Aminotransferase 18 U/L (14-59); Albumin Level 4.3 g/dL (3.4-5.0); Alkaline Phosphatase 69 U/L (46-116); Anion Gap 11 mmol/L (4-12); Aspartate Amino Transferase 11 U/L (15-37); Bilirubin Direct 0.3 mg/dL (0-0.2); Bilirubin Indirect 1.6 mg/dL (0-1.0); Bilirubin,Total 1.9 mg/dL (0.00-1.00); Blood Urea Nitrogen 12 mg/dL (7-18); Calcium 9.3 mg/dL (8.5-10.1); Carbon Dioxide 29 mmol/L (21-32); Chloride 102 mmol/L (98-108); Estimated Glomerular Filt Rate > 60; Glucose 79 mg/dL (70-99); Osmolality Calculated 292 mOsm/kg (285-295); Potassium 4.2 mmol/L (3.5-5.1); Sodium 142 mmol/L (136-145); Total Protein 7.1 g/dL (6.4-8.2)
== END 2024-09-26 08:54 | disposition home or self-care (01) ==
LOC: CHSLAB 08:54
PROVIDERS: PCP Nurse Practitioner Family; Visit Provider Nurse Practitioner Family
DX: R17 Unspecified jaundice (principal); R11.0 Nausea; R19.5 Other fecal abnormalities
CPT/HCPCS: 36415; 80053; 82248; 82784; 83013; 83516; 83520; 85027

== ENCOUNTER 2025-01-29 14:15 | Outpatient (CLI) | payer OTHER, SELFPAY ==
--- OUTSIDE RECORDS SUMMARY | 2025-01-30 08:08 | XMS_ITS | Data Portability ---
Author Organization [facility] Address [address] [place] [address] Care Team Providers Care Creative Services Intern Name Role Phone EVON LO Primary Care Provider Assessment Encounter Date Assessment Date Assessment LastModified by Organization Details LastModified Time 10/29/2020 10/29/2020 Annual gynecological exam performed. Patient will come back in a year unless there are new symptoms. Not available 10/25/2020 11:39:19 Plan of Treatment Reminders Order Date Submit Date Provider Last Modified By Organization Details Last Modified Time Details Appointments None recorded. Lab CMP, serum or plasma 2020 021 [facility] (Lab), [address] [place], [address], 21:43:10 CBC 2020 021 [facility] (Lab), [address] [place] [address] [place], [address], 2 05:00:31 lipid panel, serum 2020 021 [facility] (Lab), [address] [place], [address], 1 15:31:18 TSH, serum or plasma 2020 021 [facility] (Lab), [address] [place], [address], 2 05:00:31 vitamin D, 25-hydroxy, total, serum 2020 [facility] (Lab), [address], [place], [address], 21:43:12 Referral None recorded. Procedures None recorded. Surgeries None recorded. Imaging US, transvagina l 2020 [facility], [facility] [address], [address], [place], [address], 14:49:49 Medication Orders None recorded. Patient TargetsNo [...] patience: 10/30 1533 First Scree n: Hellen Fogn , CT Speci men: Scree chico Pap [...] Not Available [facility] (Lab) [address] [facility], [place], [address], 10/31/2020 15:21:01 10/31/19 21 10/30/2020 vitam in D, 25-oh (tota l D2/D3 ) vitamin D, 25-hydroxy, total 25.5 NG/mL 30-80 low NOTE: Defic iency : <20 ng/mL Insuf ficie ncy: 20-29 ng/mL Optim um Level : 30-80 ng/mL Possi ble Toxic ity: >80 ng/mL Most patie nts with toxic ity have level s >150 ng/mL . Not Available [facility] (Lab) [address], [address], 10/31/2020 21:43:12 10/31/19 21 10/30/2020 CMP(c ompre hensi ve metab olic panel ) sodium 140 mmol/ L 136-14 5 Not Available [facility] (Lab) [address], [address], 10/31/2020 21:43:10 10/31/19 21 10/30/2020 CMP(c ompre hensi ve metab olic panel ) potassium 4.3 mmol/ L 3.5-5. 3 Not Available [facility] (Lab) [facility] [address] [place], [address], 10/31/2020 21:43:10 10/31/19 21 10/30/2020 CMP(c ompre hensi ve metab olic panel ) chloride 103 mmol/ L 98-107 Not Available [facility] (Lab) [address] [place], [address], 10/31/2020 21:43:10 10/31/19 21 10/30/2020 CMP(c ompre hensi ve metab olic panel ) carbon dioxide 26 mmol/ L 23-31 Not Available [facility] (Lab) [address] [place], [address], 10/31/2020 21:43:10 10/31/19 21 10/30/2020 CMP(c ompre hensi ve metab olic panel ) anion gap 11 mmol/ L 8-16 Not Available [facility] (Lab) [address] [place], [address], 10/31/2020 21:43:10 10/31/19 21 10/30/2020 CMP(c ompre hensi ve metab olic panel ) blood urea nitrogen 14 mg/dL (based on legal sex) 6-20 Not Available [facility] (Lab) [address], [place], [address], 10/31/2020 21:43:10 10/31/19 21 10/30/2020 CMP(c ompre hensi ve metab olic panel ) creatinine 0.80 mg/dL (based on legal sex) .5-1.2 Not Available [facility] (Lab) [address] [place], [address], 10/31/2020 21:43:10 10/31/19 21 10/30/2020 CMP(c ompre hensi ve metab olic panel ) GFR () 104 mL/mi n/1.7 3_m2 60-300 Not Available [facility] (Lab) [address], [place], [address], 10/31/2020 21:43:10 10/31/19 21 10/30/2020 CMP(c ompre hensi ve metab olic panel ) GFR (others) 86 mL/mi n/1.7 3_m2 60-300 Not Available [facility] (Lab) [address] [place], [address], 10/31/2020 21:43:10 10/31/19 21 10/30/2020 CMP(c ompre hensi ve metab olic panel ) calcium 9.2 mg/dL 8.4-10 .5 Not Available [facility] (Lab) [address], [place], [address], 10/31/2020 21:43:10 10/31/19 21 10/30/2020 CMP(c ompre hensi ve metab olic panel ) glucose 74 mg/dL 70-99 Not Available [facility] ([facility]) [address] [place], [address], 10/31/2020 21:43:10 10/31/19 21 10/30/2020 CMP(c ompre hensi ve metab olic panel ) protein, total 6.4 g/dL 6.0-8. 3 Not Available [facility] (Lab) [address], [place], [address], 10/31/2020 21:43:10 10/31/19 21 10/30/2020 CMP(c ompre hensi ve metab olic panel ) albumin 4.6 g/dL 3.5-5. 0 Not Available [facility] (Lab) [address] [place], [address], 10/31/2020 21:43:10 10/31/19 21 10/30/2020 CMP(c ompre hensi ve metab olic panel ) ALT 14 units /L 9-43 Not Available [facility] (Lab) [address], [place], [address], 10/31/2020 21:43:10 10/31/19 21 10/30/2020 CMP(c ompre hensi ve metab olic panel ) alkaline phosphatase 74 units /L 35-129 Not Available [facility] (Lab) [address], [place], [address], 10/31/2020 21:43:10 10/31/19 21 10/30/2020 CMP(c ompre hensi ve metab olic panel ) AST 19 units /L (based on docume nted legal sex) 11-32 Not Available [facility] (Lab) [address] [place], [address], 10/31/2020 21:43:10 10/31/19 21 10/30/2020 CMP(c ompre hensi ve metab olic panel ) bilirubin, total 1.6 mg/dL 0.0-1. 0 high Not Available [facility] (Lab) [address], [place], [address], 10/31/2020 21:43:10 10/31/19 21 10/30/2020 TSH TSH 1.54 uIU/m L 0.30-5 .00 Not Available [facility] (Lab) [address], [place], [address], 10/31/2020 21:20:56 10/31/19 21 10/30/2020 lipid panel , blood total cholesterol 163 mg/dL 0-199 Not Available [facility] (Lab) [address], [place], [address], 10/31/2020 21:13:52 10/31/19 21 10/30/2020 lipid panel , blood triglyceride s 81 mg/dL 0-150 NCEP Refer ence Value s for Trigl yceri tammie: Prabha l: <150 mg/dL Borde rline High: 150 - 199 mg/dL High: 200 - 499 mg/dL Very High: >/= 500 mg/dL Not Available [facility] (Lab) [address], [place], [address], 10/31/2020 21:13:52 10/31/19 21 10/30/2020 lipid panel , blood HDL cholesterol 50 mg/dL 40-240 Not Available [facility] (Lab) [address], [place], [address], 10/31/2020 21:13:52 10/31/19 21 10/30/2020 lipid panel [...] Not Available [facility] (Lab) [facility] [address], [place], [address], 10/31/2020 21:13:52 10/31/19 21 10/30/2020 lipid panel , blood non-HDL cholesterol 113 mg/dL 0-129 A reaso nable goal for non-H DL aminata stero l is one that is 30 mg/dL highe r than the LDL aminata stero l goal. Not Available [facility] (Lab) [facility] [address], [place], [address], 10/31/2020 21:13:52 10/31/19 21 10/30/2020 lipid panel , blood chol/HDL ratio 3.3 . 0.0-5. 0 Not Available [facility] (Lab) [address], [place], [address], 10/31/2020 21:13:52 10/31/19 21 10/30/2020 CBC w/ auto diff WBC 5.5 10'3/ uL 3.6-10 .2 Not Available [facility] (Lab) [facility] [address] [place], [address], 10/31/2020 08:54:47 10/31/19 21 10/30/2020 CBC w/ auto diff RBC 4.90 10'6/ uL (based on docume nted legal sex) 4.10-5 .30 Not Available [facility] (Lab) [facility] [address], [place], [address], 10/31/2020 08:54:47 10/31/19 21 10/30/2020 CBC w/ auto diff HGB 14.3 g/dL (based on docume nted legal sex) 11.9-1 5.8 Not Available [facility] (Lab) [address] [place], [address], 10/31/2020 08:54:47 10/31/19 21 10/30/2020 CBC w/ auto diff HCT 45.3 % (based on docume nted legal sex) 37.4-4 8.3 Not Available [facility] (Lab) [address] [place], [address], 10/31/2020 08:54:47 10/31/19 21 10/30/2020 CBC w/ auto diff MCV 92.0 fL 82.0-9 9.0 Not Available [facility] (Lab) [address] [place], [address], 10/31/2020 08:54:47 10/31/19 21 10/30/2020 CBC w/ auto diff MCH 29.0 pg 27.0-3 3.0 Not Available [facility] (Lab) [address] [place], [address], 10/31/2020 08:54:47 10/31/19 21 10/30/2020 CBC w/ auto diff MCHC 32.0 g/dL 32.0-3 6.0 Not Available [facility] (Lab) [address] [place], [address], 10/31/2020 08:54:47 10/31/19 21 10/30/2020 CBC w/ auto diff RDW 13.0 % 11.0-1 5.0 Not Available [facility] ([facility]) [address] [place], [address], 10/31/2020 08:54:47 10/31/19 21 10/30/2020 CBC w/ auto diff plt 242 10'3/ uL 150-45 0 Not Available [facility] ([facility]) [address] [place], [address], 10/31/2020 08:54:47 10/31/19 21 10/30/2020 CBC w/ auto diff MPV 10.8 fL Not Available [facility] ([facility]) [address] [place], [address], 10/31/2020 08:54:47 10/31/19 21 10/30/2020 CBC w/ auto diff NRBC's 0.00 % 0 Not Available [facility] ([facility]) [address] [place], [address], 10/31/2020 08:54:47 10/31/19 21 10/30/2020 CBC w/ auto diff absolute NRBCs 0.0 10'3/ uL 0 Not Available [facility] (Lab) [address] [place], [address], 10/31/2020 08:54:47 10/31/19 21 10/30/2020 CBC w/ auto diff neutrophils 51.0 % 37.0-7 2.0 Not Available [facility] (Lab) [address] [place], [address], 10/31/2020 08:54:47 10/31/19 21 10/30/2020 CBC w/ auto diff lymphocytes 37.0 % 16.0-4 8.0 Not Available [facility] (Lab) [facility] [address], [place], [address], 10/31/2020 08:54:47 10/31/19 21 10/30/2020 CBC w/ auto diff monocytes 9.0 % 4.0-14 .0 Not Available [facility] (Lab) [address], [place], [address], 10/31/2020 08:54:47 10/31/19 21 10/30/2020 CBC w/ auto diff eosinophils 2.0 % 0.0-9. 0 Not Available [facility] (Lab) [address], [place], [address], 10/31/2020 08:54:47 10/31/19 21 10/30/2020 CBC w/ auto diff basophils 1.0 % 0.0-2. 0 Not Available [facility] (Lab) [address] [place], [address], 10/31/2020 08:54:47 10/31/19 21 10/30/2020 CBC w/ auto diff immature granulocytes 0.0 % no define d refere nce range Not Available [facility] (Lab) [address] [place], [address], 10/31/2020 08:54:47 10/31/19 21 10/30/2020 CBC w/ auto diff absolute neutrophils 2.8 10'3/ uL 1.1-6. 0 Not Available [facility] (Lab) [address] [place], [address], 10/31/2020 08:54:47 10/31/19 21 10/30/2020 CBC w/ auto diff absolute lymphocytes 2.1 10'3/ uL 0.7-3. 4 Not Available [facility] (Lab) [address] [place], [address], 10/31/2020 08:54:47 10/31/19 21 10/30/2020 CBC w/ auto diff absolute monocytes 0.5 10'3/ uL 0.3-1. 0 Not Available [facility] (Lab) [address] [place], [address], 10/31/2020 08:54:47 10/31/19 21 10/30/2020 CBC w/ auto diff absolute eosinophils 0.1 10'3/ uL 0.0-0. 6 Not Available [facility] (Lab) [address] [place], [address], 10/31/2020 08:54:47 10/31/19 21 10/30/2020 CBC w/ auto diff absolute basophils 0.0 10'3/ uL 0.0-0. 1 Not Available [facility] (Lab) [address] [place], [address], 10/31/2020 08:54:47 10/31/19 21 10/30/2020 CBC w/ [...] vin. Not Available [facility] (Lab) [address] [place], [address], 10/31/2020 08:54:47 12/24/19 22 12/23/2021 IMAGE GUIDE [...] clini ruth ann russ nted. Not Available [facility] (Lab) [address], [place], [address], 12/30/2021 14:35:30 10/31/19 21 US, trans vagin al No observ ation record ed. TUL[address], [facility], [place], [address], 11/05/2020 04:20:57 Result Notes None recorded. Problems Name Problem SNOMED Code Status Onset Date Resolution Date Notes Provider Name and Address Organization Details Recorded Time Normal pregnanc y in multigra david 26177961629 4106 Completed 201910/25/2020 Encounte r for suprvsn of normal pregnanc y, third trimeste r;Deshawn ce ID: 0001 Shani diaz, [facility] 11:38:03 Educatio n Completed 201910/25/2020 Encounte r for oth general cnsl and advice on contrace ption;Pr actice ID: 0001 Shani diaz [facility] 11:37:54 Lochia finding Completed 201910/25/2020 Encounte r for routine postpart um follow-u p;Practi ce ID: 0001 Shani diaz [facility] 11:38:01 Insertio n of intraute rine contrace ptive device Completed 201910/25/2020 Encounte r for insertio n of intraute rine contrace ptive device;P ractice ID: 0001 Shani diaz, [facility] 1 11:38:00 Clinical finding Completed 201910/25/2020 Presence of (intraut erine) contrace ptive device;P ractice ID: 0001 Shani diaz, [facility] 11:37:52 Pregnanc y, childbir th and puerperi um finding Completed 201510/25/2020 Encntr for suprvsn of normal first preg, third trimeste r;Record ed Elsewher e: No Locat ion: [facility] S ource: [employer] poppy: N Carltonti ce ID: 0001 Elvin lable Time: 11:45:00 AM Shani diaz, [facility] 11:38:11 Pregnanc y detectio n examinat ion Completed 201410/25/2020 Encounte r for pregnanc y test, result positive ;Recorde d Elsewher e: No Locat ion: [facility] S ource: [employer] [employer] poppy: N Carltonti ce ID: 0001 Elvin lable Time: 10:00:00 AM Shani diaz, [facility] 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 11:38:19 Pregnanc y, childbir th and puerperi um finding Completed 201510/25/2020 Encounte r for supervis ion of normal first pregnanc y, second trimeste r;Record ed Elsewher e: No Locat ion: [facility] S ource: [facility] [employer] poppy: N Carltonti ce ID: 0001 Elvin lable Time: 09:30:00 AM Shani diaz [facility] 11:38:09 Antenata l screenin g Completed 201810/25/2020 Encounte r for antenata l screenin g for nuchal transluc ency;Rec orded Elsewher e: No Locat ion: [facility] Practi ce ID: 0001 Elvin lable Time: 08:15:00 AM Shani diaz [facility] 11:37:25 Genital herpes simplex [id number] Completed 201310/25/2020 Genital herpes;R ecorded Elsewher e: No Locat ion: [facility] N Carlt[place] ce ID: 0001 Elvin lable Time: 11:00:00 AM Shani diaz, [facility] 11:47:32 Pregnanc y-induce d hyperten tamiko Completed 201510/25/2020 Gestatio nal [pregnan cy-induc ed] hyperten tamiko without signific ant proteinu kady, unspecif ied trimeste r;Record ed Elsewher e: No Locat ion: [facility] N Carlt[place] ce ID: 0001 Elvin lable Time: 02:00:00 PM Shani diaz [facility] 11:38:13 Gestatio n period, 23 weeks [id number] Completed 201510/25/2020 23 weeks gestatio n of pregnanc y;Record ed Elsewher e: No Locat ion: [facility] N Practi ce ID: 0001 Elvin lable Time: 02:45:00 PM Shani diaz [facility] 11:37:[address] Concept Completed 201510/25/2020 Maternal care for oth abnormal ity and damage, unsp;Rec orded Elsewher e: No Locat ion: [place] [facility] S ource: E[facility] [employer] poppy: N Carltonti ce ID: 0001 Elvin lable Time: 02:45:00 PM Shani diaz, [facility] 1 11:38:17 Pregnanc y, childbir th and puerperi um finding Completed 201410/25/2020 Encounte r for supervis ion of normal first pregnanc y, first trimeste r;Record ed Elsewher e: No [facility] N Deshawn ce ID: 0001 Elvin lable Time: 04:00:00 PM Shani diaz, [facility] 11:38:07 Rubella screenin g status [id number] Completed 201810/25/2020 Encounte r for antenata l screenin g, unspecif ied;Eliceo rded Elsewher e: No [facility] S ource: [facility] [employer] poppy: Nori Hess ce ID: 0001 Elvin lable Time: 09:30:00 AM Shani diaz, [facility] 11:38:15 Antenata l screenin g for malforma tion Completed 201810/25/2020 Encounte r for antenata l screenin g for malforma tions;Re corded Elsewher e: No [facility] S ource: [facility] [employer] poppy: N Carltonti ce ID: 0001 Elvin lable Time: 08:15:00 AM Shani diaz, [facility] 11:37:50 Perineal lacerati on during delivery [id number] Completed 201510/25/2020 Perineal lacerati on during delivery , unspecif ied;Prac galileo ID: 0001 Shani diaz, [facility] 11:38:04 Single live from singleto n pregnanc y [id number] Completed 201510/25/2020 Single live ;Pr actice ID: 0001 Shani Kolb emily [facility] 11:38:16 Term pregnanc y delivere d 54542059 Completed 201910/25/2020 Encounte r for full-ter m uncompli cated delivery ;Practic e ID: 0001 Shani diaz, [facility] 11:38:20 Gestatio n period, 39 weeks 64359323 Completed 201910/25/2020 39 weeks gestatio n of pregnanc y;Practi ce ID: 0001 [facility], [facility] 11:37:58 Generali zed anxiety disorder 29306909 Active [address] [facility] 11:45:48 Herpes simplex 82659481 Completed 202010/25/[address] [facility] 11:47:22 Genital herpes simplex 83643619 Active [address] [facility] 11:47:32 Past pregnanc y history of pre-ecla mpsia 64205784484 9100 Active 202001/17/[address] [facility] 11:52:35 Notes:Scoliosis Problem Notes None recorded. Procedures Surgical History Date Name Laterality Status Provider Name and Address Organization Details Recorded Time 2 Date of Last Pap Smear completed Rolanda Sahu [facility] 12/23/2021 10:39:10 9 extraction of wisdom tooth completed Rolanda Sahu [facility] 12/23/2021 10:40:39 Imaging Results None recorded. Procedure Notes None recorded. Medical Equipment None Reported. Allergies No known drug allergies Medications Name Sig Start Date Stop Date Status Note LastModified by Organization Details LastModified Time valacyclo vir 1 gram tablet take 1 tablet by oral route every 12 hours 02/08 completed Prescrib ed Elsewher e: No [facility] By: camille Roach r DateTime : 12/19/19 16 11:54:25 AM Not Available Not Available Not Available Diflucan 150 mg tablet take 1 tablet by oral route once 10/13 completed Prescrib ed Elsewher e: No Locat ion: [facility] odify By: abhinav Roach r DateTime : 07/21/20 19 09:00:00 AM Not Available Not Available Not Available acyclovir 400 mg tablet take 1 tablet by oral route every 12 hours 12/04 completed Prescrib ed Elsewher e: No Locat ion: [place] [facility] odify By: abhinav Roach r DateTime : 08/29/20 19 11:15:00 AM Not Available Not Available Not Available valacyclo vir 500 mg tablet take 1 tablet by oral route 2 times every day 02/08 completed Prescrib ed Elsewher e: No Locat ion: [facility] odify By: camille Roach r DateTime : 01/02/20 16 09:15:00 AM Not Available Not Available Not Available amoxicill in 500 mg tablet take 1 tablet by oral route 3 times every day for 7 days 07/22 completed Prescrib ed Elsewher e: No Locat ion: [facility] odify By: armando Roach r DateTime : 07/13/20 19 02:37:59 PM Not Available Not Available Not Available Macrobid 100 mg capsule take 1 capsule by oral route every 12 hours with food 10/13 completed Prescrib ed Elsewher e: No Locat ion: [place] [facility] odify By: abhinav Roach r DateTime : 05/16/20 19 02:10:46 PM Not Available Not Available Not Available Norvasc 5 mg tablet take 1 tablet by oral route every day 02/08 completed Prescrib ed Elsewher e: No Locat ion: [place] [facility] odify By: camille Raoch r DateTime : 01/20/20 16 12:23:36 PM Not Available Not Available Not Available promethaz ine 25 mg tablet take 1 tablet by oral route every 4 - 6 hours as needed 01/22 completed Prescrib ed Elsewher e: No Locat ion: [place] [facility] odify By: roc Roach r DateTime : 06/22/20 15 03:00:00 PM Not Available Not Available Not Available aspirin 81 mg chewable tablet chew 1 tablet by oral route every day 12/04 completed Prescrib ed Elsewher e: Yes Loca tion: [place] [facility] odify By: abhinav Roach r DateTime [...] Elsewher e: No Locat ion: [place] [facility] odify By: camille Encounte r DateTime : 02/12/20 16 12:00:00 PM Not Available Not Available Not Available buspirone 15 mg tablet take 1 tablet by oral route 2 times every day 01/22 completed Prescrib ed Elsewher e: No Locat ion: [place] [facility] odify By: roc Roach r DateTime : 10/08/19 16 02:00:00 PM Not Available Not Available Not Available escitalop carlota 10 mg tablet 12/23 completed Not Available Not Available Not Available 12/23 completed Not Available Not Available Not Available PNV-DHA 27 mg iron-1 mg-300 mg capsule take 1 capsule by oral route every day 01/22 completed Prescrib ed Cindi e: No Locat ion: [facility] odify By: roc partida DateTime : 06/22/20 03:00:00 PM Not Available Not Available Not [...] Updated DateTime 10/29/2020 172.72 cm 19 kg/m2 85158.05 g 109 mm[Hg] 77 mm[Hg] Shani Kolb [facility] 10:19:34 Date Recorded Body height Body mass index (BMI) Body weight Systolic blood pressure Diastolic blood pressure Provider Name and Address Organization Details Last Updated DateTime 12/23/2021 172.72 cm 19.3 kg/m2 33307.23 g 101 mm[Hg] 62 mm[Hg] Rolanda Sahu [facility] 2 10:37:36 Social History Question Answer Notes LastModified by Organizat ion Details LastModified Time Tobacco Smoking Status Never Smoker Rolanda Sahu null, [facility] 12/23/2021 10:38:25 Do You Have An Advance Directive? No Information n ot available 12/23/2021 Are You Blind Or Do You Have Difficulty Seeing? No [email or web address] Information n ot available 12/23/2021 What Is Your Level Of Caffeine Consumption? Occasional [email or web address] Information not available 12/23/2021 How Much Tobacco Do You Chew? None [email or web address] Information not available 12/23/2021 In The 14 Days Before Symptom Onset, Have You Had Close Contact With A Laboratory-confirm ed COVID-19 While That Case Was Ill? No [email or web address] Information n ot available 12/23/2021 In The 14 Days Before Symptom Onset, Have You Had Close Contact With A Person Who Is Under Investigation For COVID-19 While That Person Was Ill? No [email or web address] Information not available 12/23/2021 Have You Been To An Area Known To Be High Risk For COVID-19? Yes [email or web address] Information not available 12/23/2021 Are You Deaf Or Do You Have Serious Difficulty Hearing? No [email or web address] Information not available 12/23/2021 What Type Of Diet Are You Following? REGULAR [email or web address] Information n ot available 12/23/2021 What Is The Highest Grade Or Level Of School You Have Completed Or The Highest Degree You Have Received? [id number] [email or web address] Information not available 12/23/2021 Are There Any Guns Present In Your Home? No Information not available 12/23/2021 Do You Use Protection During Sex? No Information not available 12/23/2021 Do You Use Your Seat Belt Or Car Seat Routinely? Yes [email or web address] Information not available 12/23/2021 Do You Have Smoke And Carbon Monoxide Detectors In Your Home? Yes [email or web address] Information not available 12/23/2021 How Much Tobacco Do You Smoke? No [email or web address] Information not available 12/23/2021 Do You Use Sunscreen Routinely? Yes [email or web address] Information not available 12/23/2021 Have You Used IV Drugs? No [email or web address] Information not available 12/23/2021 Do You Have Difficulty Walking Or Climbing Stairs? No [email or web address] Information not available 12/23/2021 Sex: Unknown Functional Status Question Answer Note LastModified by Organizat ion Details LastModified Time Do you use any illicit or recreational drugs? No [email or web address] Information not available 12/23/2021 What is your level of alcohol consumption? None [email or web address] Information not available 12/23/2021 Are you able to walk? YESWOREST Information not available 12/23/2021 Are you able to care for yourself? 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 No [email or web address] Information not available 12/23/2021 What is your exercise level? Moderate [email or web address] Information not available 12/23/2021 Mental Status Question Answer Note LastModified by Organization D etails LastModified Time Do you feel stressed (tense, restless, nervous, or anxious, or unable to sleep at night)? [id number] [email or web address] Information not available 12/23/2021 Family History Relationship Description Onset Age of this Age Resolved Age Notes LastModified by Organization Details LastModified Time Father No current problems or disability [email or web address] Not available 10/25 11:51:33 Mother No current problems or disability [email or web address] Not available 10/25 11:51:33 Mother Mesothelioma (malignant, clinical disorder) [email or web address] Not available 12/25 19:54:38 Medical History Condition Response Allergies (Food, seasonal, environmental ) N Other Y Breast Cancer N Drug/Latex Allergies/Reactions N Blood Transfusion N Dermatologic Disorders N Lung Disease N Defects or Inherited Disease N Breast Problem N Gestational Diabetes N Hematologic disorders N Anesthesia Complications N History of STI Y Deep Vein Thrombosis N Polycystic ovary syndrome N Anxiety Disorder Y Autoimmune disease N Arthritis N Infertility N Polyps N Acid Reflux (GERD) N History of abnormal pap N Cancer N Stroke N Varicosities N Neurologic/Epilepsy N Endometriosis N High Cholesterol N Headaches N Fibromyalgia N Kidney Disease N Heart Problems N Kidney or Bladder Problems N Thyroid Problems N GI Problems N Eating Disorder [...] SNOMED-CT Code Diagnosis ICD10 Code Diagnosis Note [id number] Jessica AguilarJEFF [place] [address] [address] 10/29/2020 10:07:40 10/29/2020 13:55:37 Gynecologic examination [id number] Z01.419 Take Calcium with Vitamin D 1200mg [...] if desired. Routine gy necologic examination done [id number] Z01.419 [id number] Kody Ayers MD [place] [address] [address] 10/30/2020 09:27:06 10/30/2020 14:49:49 Mechanical complication of intrauterine contraceptive device [id number] T83.39XA [id number] Jessica Aguilar CNM [place] [address] [address] 12/23/2021 10:26:29 12/24/2021 16:47:34 Gynecologic examination [id number] Z01.419 Z11.51 Take Calcium with Vitamin D [...] Florian Member ID Guarantor Name 10/29/2020 1 [facility] [id number] Severino Hager [id number] Preeti Hager 10/30/2020 1 [facility] [id number] Severino Hager [id number] Preeti Hager 12/23/2021 1 [facility] [id number] Severino Hager [id number] Preeti Hager Notes Date Note Type Note [...] symptoms:No depression; No anxiety; No PMDD Jessica Aguilar [facility] 10/29/2020 10:40:35 12/23/2021 text/html Annual GYNReport ed bypatient.Menstrua l cycle:amenorrhea d/t IUD Urinary symptoms:No hematuria; No incontinence Vulva:No genital lesion Vagina:Normal vaginal discharge Breast:No breast pain; No breast lump; No nipple discharge Sexual complaints:No sexual complaints; No pain during intercourse; Normal libido Menopausal Symptoms:No menopausal symptoms; Normal vaginal lubrication Psychological symptoms:No depression; No anxiety; No PMDD Jessica Aguilar [facility] 12/25/2021 06:52:08 OBGyn Episode Ob Episode Information Episode Created Date Number of Fetuses Patient Bloodtype Patient rh Status Prepregnancy Weight lbs Domestic Partner Domestic Partner Phone Father Name Parole Agent Status 10/25/19 21 1 CLOSED Fetus Data [...] Domestic Partner Domestic Partner Phone Father Name Parole Agent Status 10/25/19 21 1 CLOSED Fetus Data [...]
== END 2025-01-29 14:16 | disposition home or self-care (01) ==
PROVIDERS: PCP Family Medicine; Visit Provider Nurse Practitioner Family
DX: R19.5 Other fecal abnormalities (principal)
CPT/HCPCS: 83993

== ENCOUNTER 2025-02-13 00:44 | Day surgery (SDC) | payer OTHER, SELFPAY ==
[2025-02-09 10:56] VITALS: BMI 19.5
--- OUTSIDE RECORDS SUMMARY | 2025-02-13 00:47 | XMS_ITS | Data Portability ---
Author Organization [facility] Address [address] [place] [address] Care Team Providers Care Internal Audit Senior Manager Name Role Phone EVON LO Primary Care Provider [phone] Assessment Encounter Date Assessment Date Assessment LastModified by Organization Details LastModified Time 10/29/2020 10/29/2020 Annual gynecological exam performed. Patient will come back in a year unless there are new symptoms. [email or web address] Not available 10/25/2020 11:39:19 Plan of Treatment Reminders Order Date Submit Date Provider Last Modified By Organization Details Last Modified Time Details Appointments None recorded. Lab CMP, serum or plasma 2020 021 [facility] (Lab), [address] [place], [address], 21:43:10 CBC 2020 021 [facility] (Lab), [address] [place], [address], 2 05:00:31 lipid panel, serum 2020 021 [facility] (Lab), [address] [place], [address], 1 15:31:18 TSH, serum or plasma 2020 021 [facility] (Lab), [address] [place], [address], 2 05:00:31 vitamin D, 25-hydroxy, total, serum 2020 [facility] (Lab), [address], [place], [address], 21:43:12 Referral None recorded. Procedures None recorded. Surgeries None recorded. Imaging US, transvagina l 2020 [facility], [facility][note 3] [address], [address], [place], [address], 14:49:49 Medication Orders None recorded. Patient TargetsNo [...] Repor t Case: [id number] Autho carols g Provi luis e: Jessica Bass, JEFF [...] Not Available [facility] (Lab) [address] [facility], [place], [address], 10/31/2020 15:21:01 10/31/19 21 10/30/2020 vitam in D, 25-oh (tota l D2/D3 ) vitamin D, 25-hydroxy, total 25.5 NG/mL 30-80 low NOTE: Defic iency : <20 ng/mL Insuf ficie ncy: 20-29 ng/mL Optim um Level : 30-80 ng/mL Possi ble Toxic ity: >80 ng/mL Most patie nts with toxic ity have level s >150 ng/mL . Not Available [facility] (Lab) [address], [address], 10/31/2020 21:43:12 10/31/19 21 10/30/2020 CMP(c ompre hensi ve metab olic panel ) sodium 140 mmol/ L 136-14 5 Not Available [facility] (Lab) [address], [address], 10/31/2020 21:43:10 10/31/19 21 10/30/2020 CMP(c ompre hensi ve metab olic panel ) potassium 4.3 mmol/ L 3.5-5. 3 Not Available [facility] (Lab) [facility] [address] [place], [address], 10/31/2020 21:43:10 10/31/19 21 10/30/2020 CMP(c ompre hensi ve metab olic panel ) chloride 103 mmol/ L 98-107 Not Available [facility] (Lab) [address] [place], [address], 10/31/2020 21:43:10 10/31/19 21 10/30/2020 CMP(c ompre hensi ve metab olic panel ) carbon dioxide 26 mmol/ L 23-31 Not Available [facility] (Lab) [address] [place], [address], 10/31/2020 21:43:10 10/31/19 21 10/30/2020 CMP(c ompre hensi ve metab olic panel ) anion gap 11 mmol/ L 8-16 Not Available [facility] (Lab) [address] [place], [address], 10/31/2020 21:43:10 10/31/19 21 10/30/2020 CMP(c ompre hensi ve metab olic panel ) blood urea nitrogen 14 mg/dL (based on legal sex) 6-20 Not Available [facility] (Lab) [address], [place], [address], 10/31/2020 21:43:10 10/31/19 21 10/30/2020 CMP(c ompre hensi ve metab olic panel ) creatinine 0.80 mg/dL (based on legal sex) .5-1.2 Not Available [facility] (Lab) [address] [place], [address], 10/31/2020 21:43:10 10/31/19 21 10/30/2020 CMP(c ompre hensi ve metab olic panel ) GFR () 104 mL/mi n/1.7 3_m2 60-300 Not Available [facility] (Lab) [address], [place], [address], 10/31/2020 21:43:10 10/31/19 21 10/30/2020 CMP(c ompre hensi ve metab olic panel ) GFR (others) 86 mL/mi n/1.7 3_m2 60-300 Not Available [facility] (Lab) [address] [place], [address], 10/31/2020 21:43:10 10/31/19 21 10/30/2020 CMP(c ompre hensi ve metab olic panel ) calcium 9.2 mg/dL 8.4-10 .5 Not Available [facility] (Lab) [address], [place], [address], 10/31/2020 21:43:10 10/31/19 21 10/30/2020 CMP(c ompre hensi ve metab olic panel ) glucose 74 mg/dL 70-99 Not Available [facility] [address] [place], [address], 10/31/2020 21:43:10 10/31/19 21 10/30/2020 CMP(c ompre hensi ve metab olic panel ) protein, total 6.4 g/dL 6.0-8. 3 Not Available [facility] ([facility]) [address], [place], [address], 10/31/2020 21:43:10 10/31/19 21 10/30/2020 CMP(c ompre hensi ve metab olic panel ) albumin 4.6 g/dL 3.5-5. 0 Not Available [facility] ([facility]) [address] [place], [address], 10/31/2020 21:43:10 10/31/19 21 10/30/2020 CMP(c ompre hensi ve metab olic panel ) ALT 14 units /L 9-43 Not Available [facility] ([facility]) [address], [place], [address], 10/31/2020 21:43:10 10/31/19 21 10/30/2020 CMP(c ompre hensi ve metab olic panel ) alkaline phosphatase 74 units /L 35-129 Not Available [facility] ([facility]) [address], [place], [address], 10/31/2020 21:43:10 10/31/19 21 10/30/2020 CMP(c ompre hensi ve metab olic panel ) AST 19 units /L (based on docume nted legal sex) 11-32 Not Available [facility] ([facility]) [address] [place], [address], 10/31/2020 21:43:10 10/31/19 21 10/30/2020 CMP(c ompre hensi ve metab olic panel ) bilirubin, total 1.6 mg/dL 0.0-1. 0 high Not Available [facility] (Lab) [address], [place], [address], 10/31/2020 21:43:10 10/31/19 21 10/30/2020 TSH TSH 1.54 uIU/m L 0.30-5 .00 Not Available [facility] (Lab) [address], [place], [address], 10/31/2020 21:20:56 10/31/19 21 10/30/2020 lipid panel , blood total cholesterol 163 mg/dL 0-199 Not Available [facility] (Lab) [address], [place], [address], 10/31/2020 21:13:52 10/31/19 21 10/30/2020 lipid panel , blood triglyceride s 81 mg/dL 0-150 NCEP Refer ence Value s for Trigl yceri tammie: Prabha l: <150 mg/dL Borde rline High: 150 - 199 mg/dL High: 200 - 499 mg/dL Very High: >/= 500 mg/dL Not Available [facility] (Lab) [address], [place], [address], 10/31/2020 21:13:52 10/31/19 21 10/30/2020 lipid panel , blood HDL cholesterol 50 mg/dL 40-240 Not Available [facility] (Lab) [address], [place], [address], 10/31/2020 21:13:52 10/31/19 21 10/30/2020 lipid panel , blood LDL cholesterol 97 mg/dL 0-99 Cutof f value s recom cameron d by the Natio nal Aminata stero l Educa tion Progr am: XOCHITL ABLE: Amniata stero l <200 mg/dL LDL <100 mg/dL BORDE RLINE : Aminata stero l 200-2 39 mg/dL LDL 101-1 59 mg/dL HIGHE R RISK: Aminata stero l >240 mg/dL LDL >160 mg/dL , HDL <40 mg/dL Not Available [facility] (Lab) [facility] [address], [place], [address], 10/31/2020 21:13:52 10/31/19 21 10/30/2020 lipid panel , blood non-HDL cholesterol 113 mg/dL 0-129 A reaso nable goal for non-H DL aminata stero l is one that is 30 mg/dL highe r than the LDL aminata stero l goal. Not Available [facility] (Lab) [facility] [address], [place], [address], 10/31/2020 21:13:52 10/31/19 21 10/30/2020 lipid panel , blood chol/HDL ratio 3.3 . 0.0-5. 0 Not Available [facility] (Lab) [address], [place], [address], 10/31/2020 21:13:52 10/31/19 21 10/30/2020 CBC w/ auto diff WBC 5.5 10'3/ uL 3.6-10 .2 Not Available [facility] (Lab) [facility] [address] [place], [address], 10/31/2020 08:54:47 10/31/19 21 10/30/2020 CBC w/ auto diff RBC 4.90 10'6/ uL (based on docume nted legal sex) 4.10-5 .30 Not Available [facility] (Lab) [facility] [address], [place], [address], 10/31/2020 08:54:47 10/31/19 21 10/30/2020 CBC w/ auto diff HGB 14.3 g/dL (based on docume nted legal sex) 11.9-1 5.8 Not Available [facility] (Lab) [address] [place], [address], 10/31/2020 08:54:47 10/31/19 21 10/30/2020 CBC w/ auto diff HCT 45.3 % (based on docume nted legal sex) 37.4-4 8.3 Not Available [facility] (Lab) [address] [place], [address], 10/31/2020 08:54:47 10/31/19 21 10/30/2020 CBC w/ auto diff MCV 92.0 fL 82.0-9 9.0 Not Available [facility] (Lab) [address] [place], [address], 10/31/2020 08:54:47 10/31/19 21 10/30/2020 CBC w/ auto diff MCH 29.0 pg 27.0-3 3.0 Not Available [facility] (Lab) [address] [place], [address], 10/31/2020 08:54:47 10/31/19 21 10/30/2020 CBC w/ auto diff MCHC 32.0 g/dL 32.0-3 6.0 Not Available [facility] (Lab) [address] [place], [address], 10/31/2020 08:54:47 10/31/19 21 10/30/2020 CBC w/ auto diff RDW 13.0 % 11.0-1 5.0 Not Available [facility] ([facility]) [address] [place], [address], 10/31/2020 08:54:47 10/31/19 21 10/30/2020 CBC w/ auto diff plt 242 10'3/ uL 150-45 0 Not Available [facility] ([facility]) [address] [place], [address], 10/31/2020 08:54:47 10/31/19 21 10/30/2020 CBC w/ auto diff MPV 10.8 fL Not Available [facility]) [address] [place], [address], 10/31/2020 08:54:47 10/31/19 21 10/30/2020 CBC w/ auto diff NRBC's 0.00 % 0 Not Available [facility] ([facility]) [address] [place], [address], 10/31/2020 08:54:47 10/31/19 21 10/30/2020 CBC w/ auto diff absolute NRBCs 0.0 10'3/ uL 0 Not Available [facility] ([facility]) [address] [place], [address], 10/31/2020 08:54:47 10/31/19 21 10/30/2020 CBC w/ auto diff neutrophils 51.0 % 37.0-7 2.0 Not Available [facility] ([facility]) [address] [place], [address], 10/31/2020 08:54:47 10/31/19 21 10/30/2020 CBC w/ auto diff lymphocytes 37.0 % 16.0-4 8.0 Not Available [facility] ([facility]) [facility] [address], [place], [address], 10/31/2020 08:54:47 10/31/19 21 10/30/2020 CBC w/ auto diff monocytes 9.0 % 4.0-14 .0 Not Available [facility] (Lab) [address], [place], [address], 10/31/2020 08:54:47 10/31/19 21 10/30/2020 CBC w/ auto diff eosinophils 2.0 % 0.0-9. 0 Not Available [facility] (Lab) [address], [place], [address], 10/31/2020 08:54:47 10/31/19 21 10/30/2020 CBC w/ auto diff basophils 1.0 % 0.0-2. 0 Not Available [facility] (Lab) [address] [place], [address], 10/31/2020 08:54:47 10/31/19 21 10/30/2020 CBC w/ auto diff immature granulocytes 0.0 % no define d refere nce range Not Available [facility] (Lab) [address] [place], [address], 10/31/2020 08:54:47 10/31/19 21 10/30/2020 CBC w/ auto diff absolute neutrophils 2.8 10'3/ uL 1.1-6. 0 Not Available [facility] (Lab) [address] [place], [address], 10/31/2020 08:54:47 10/31/19 21 10/30/2020 CBC w/ auto diff absolute lymphocytes 2.1 10'3/ uL 0.7-3. 4 Not Available [facility] (Lab) [address] [place], [address], 10/31/2020 08:54:47 10/31/19 21 10/30/2020 CBC w/ auto diff absolute monocytes 0.5 10'3/ uL 0.3-1. 0 Not Available [facility] (Lab) [address] [place], [address], 10/31/2020 08:54:47 10/31/19 21 10/30/2020 CBC w/ auto diff absolute eosinophils 0.1 10'3/ uL 0.0-0. 6 Not Available [facility] (Lab) [address] [place], [address], 10/31/2020 08:54:47 10/31/19 21 10/30/2020 CBC w/ auto diff absolute basophils 0.0 10'3/ uL 0.0-0. 1 Not Available [facility] (Lab) [address] [place], [address], 10/31/2020 08:54:47 10/31/19 21 10/30/2020 CBC w/ [...] vin. Not Available [facility] (Lab) [address] [place], [address], 10/31/2020 08:54:47 12/24/19 22 12/23/2021 IMAGE GUIDE [...] patience: 12/24 0148 First Scree n: Marcelo adners, Juan atkins, CT Speci men: Scree chico [...] clini ruth ann russ nted. Not Available [facility] (Lab) [address], [place], [address], 12/30/2021 14:35:30 10/31/19 21 US, trans vagin al No observ ation record ed. TULIO [address], [facility], [place], [address], 11/05/2020 04:20:57 Result Notes None recorded. Problems Name Problem SNOMED Code Status Onset Date Resolution Date Notes Provider Name and Address Organization Details Recorded Time Normal pregnanc y in multigra david [id number] 4106 Completed 201910/25/2020 Encounte r for suprvsn of normal pregnanc y, third trimeste r;Deshawn ce ID: 0001 Shani diaz, [facility] 11:38:03 Educatio n Completed 201910/25/2020 Encounte r for oth general cnsl and advice on contrace ption;Pr actice ID: 0001 Shani diaz [facility] 11:37:54 Lochia finding Completed 201910/25/2020 Encounte r for routine postpart um follow-u p;Practi ce ID: 0001 Shani diaz [facility] 11:38:01 Insertio n of intraute rine contrace ptive device Completed 201910/25/2020 Encounte r for insertio n of intraute rine contrace ptive device;P ractice ID: 0001 Shani diaz, [facility] 1 11:38:00 Clinical finding Completed 201910/25/2020 Presence of (intraut erine) contrace ptive device;P ractice ID: 0001 Shani diaz, [facility] 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 11:38:11 Pregnanc y detectio n examinat ion Completed 201410/25/2020 Encounte r for pregnanc y test, result positive ;Recorde d Elsewher e: No Locat ion: [facility] S ource: EHR [employer] poppy: N Carltonti ce ID: 0001 Elvin lable Time: 10:00:00 AM Shani diaz, [facility] 11:38:[address] Concept Completed 201810/25/2020 Encntr for buttermaker exam (general ) (routine ) w/o abn findings ;Recorde d Elsewher e: No Locat ion: [facility] S ource: EHR [employer] poppy: N Carltonti ce ID: 0001 Elvin lable Time: 11:15:00 AM Shani diaz, [facility] 11:38:19 Pregnanc y, childbir th and puerperi um finding Completed 201510/25/2020 Encounte r for supervis ion of normal first pregnanc y, second trimeste r;Record ed Elsewher e: No Locat ion: [facility] S ource: EHR [employer] poppy: N Carltonti ce ID: 0001 Elvin lable Time: 09:30:00 AM Shani diaz [facility] 11:38:09 Antenata l screenin g Completed 201810/25/2020 Encounte r for antenata l screenin g for nuchal transluc ency;Rec orded Elsewher e: No Locat ion: [facility] Practi ce ID: 0001 Elvin lable Time: 08:15:00 AM Shani diaz [facility] 11:37:25 Genital herpes simplex [id number] Completed 201310/25/2020 Genital herpes;R ecorded Elsewher e: No Locat ion: [facility] N Carltonti ce ID: 0001 Elvin lable Time: 11:00:00 AM Shani diaz, [facility] 11:47:32 Pregnanc y-induce d hyperten tamiko Completed 201510/25/2020 Gestatio nal [pregnan cy-induc ed] hyperten tamiko without signific ant proteinu kady, unspecif ied trimeste r;Record ed Elsewher e: No Locat ion: [facility] N Carltonti ce ID: 0001 Elvin lable Time: 02:00:00 PM Shani diaz [facility] 11:38:13 Gestatio n period, 23 weeks [id number] Completed 201510/25/2020 23 weeks gestatio n of pregnanc y;Record ed Elsewher e: No Locat ion: [facility] N Practi ce ID: 0001 Elvin lable Time: 02:45:00 PM Shani diaz [facility] 11:37:[address] Concept Completed 201510/25/2020 Maternal care for oth abnormal ity and damage, unsp;Rec orded Elsewher e: No Locat ion: Jasmin miles [facility] S ource: EHR [employer] poppy: N Carltonti ce ID: 0001 Elvin lable Time: 02:45:00 PM Shani diaz, [facility] 1 11:38:17 Pregnanc y, childbir th and puerperi um finding Completed 201410/25/2020 Encounte r for supervis ion of normal first pregnanc y, first trimeste r;Record ed Elsewher e: No [facility] N Deshawn ce ID: 0001 Elvin lable Time: 04:00:00 PM Shani diaz, [facility] 11:38:07 Rubella screenin g status [id number] Completed 201810/25/2020 Encounte r for antenata l screenin g, unspecif ied;Eliceo rded Elsewher e: No [facility] S ource: EHR [employer] poppy: Nori Hess ce ID: 0001 Elvin lable Time: 09:30:00 AM Shani diaz, [facility] 11:38:15 Antenata l screenin g for malforma tion Completed 201810/25/2020 Encounte r for antenata l screenin g for malforma tions;Re corded Elsewher e: No [facility] S ource: EHR [employer] poppy: N Carltonti ce ID: 0001 Elvin lable Time: 08:15:00 AM Shani diaz, [facility] 11:37:50 Perineal lacerati on during delivery [id number] Completed 201510/25/2020 Perineal lacerati on during delivery , unspecif ied;Prac galileo ID: 0001 Shani diaz, [facility] 11:38:04 Single live from singleto n pregnanc y [id number] Completed 201510/25/2020 Single live ;Pr actice ID: 0001 Shani Kolb emily [facility] 11:38:16 Term pregnanc y delivere d 52586557 Completed 201910/25/2020 Encounte r for full-ter m uncompli cated delivery ;Practic e ID: 0001 Shani diaz, [facility] 11:38:20 Gestatio n period, 39 weeks 92991595 Completed 201910/25/2020 39 weeks gestatio n of pregnanc y;Practi ce ID: 0001 Shani Kolb [facility], [facility] 11:37:58 Generali zed anxiety disorder 34706580 Active 2020 Shani Kolb [facility] 11:45:48 Herpes simplex 30117663 Completed 202010/25/2020 Shani Galindoan [facility] 11:47:22 Genital herpes simplex 56667810 Active 2020 Shani Galindoan [facility] 11:47:32 Past pregnanc y history of pre-ecla mpsia 28408476536 9100 Active 202001/17/20 16 Shani Kolb [facility] 11:52:35 Notes:Scoliosis Problem Notes None recorded. Procedures Surgical History Date Name Laterality Status Provider Name and Address Organization Details Recorded Time 2 Date of Last Pap Smear completed Rolanda Sahu [facility] 12/23/2021 10:39:10 9 extraction of wisdom tooth completed Rolanda Sahu [facility] 12/23/2021 10:40:39 Imaging Results None recorded. Procedure Notes None recorded. Medical Equipment None Reported. Allergies No known drug allergies Medications Name Sig Start Date Stop Date Status Note LastModified by Organization Details LastModified Time valacyclo vir 1 gram tablet take 1 tablet by oral route every 12 hours 02/08 completed Prescrib ed Elsewher e: No [facility] By: camille Roach r DateTime : 12/19/19 16 11:54:25 AM Not Available Not Available Not Available Diflucan 150 mg tablet take 1 tablet by oral route once 10/13 completed Prescrib ed Elsewher e: No Locat ion: [facility] odify By: abhinav Roach r DateTime : 07/21/20 19 09:00:00 AM Not Available Not Available Not Available acyclovir 400 mg tablet take 1 tablet by oral route every 12 hours 12/04 completed Prescrib ed Elsewher e: No Locat ion: [facility] [place] [facility] odify By: abhinav Roach r DateTime : 08/29/20 19 11:15:00 AM Not Available Not Available Not Available valacyclo vir 500 mg tablet take 1 tablet by oral route 2 times every day 02/08 completed Prescrib ed Elsewher e: No Locat ion: [facility] odify By: camille Roach r DateTime : 01/02/20 16 09:15:00 AM Not Available Not Available Not Available amoxicill in 500 mg tablet take 1 tablet by oral route 3 times every day for 7 days 07/22 completed Prescrib ed Elsewher e: No Locat ion: [facility] odify By: armando Roach r DateTime : 07/13/20 19 02:37:59 PM Not Available Not Available Not Available Macrobid 100 mg capsule take 1 capsule by oral route every 12 hours with food 10/13 completed Prescrib ed Elsewher e: No Locat ion: [facility] [facility] odify By: abhinav Roach r DateTime : 05/16/20 19 02:10:46 PM Not Available Not Available Not Available Norvasc 5 mg tablet take 1 tablet by oral route every day 02/08 completed Prescrib ed Elsewher e: No Locat ion: [facility] [facility] odify By: camille Roach r DateTime : 01/20/20 16 12:23:36 PM Not Available Not Available Not Available promethaz ine 25 mg tablet take 1 tablet by oral route every 4 - 6 hours as needed 01/22 completed Prescrib ed Elsewher e: No Locat ion: [facility] [place] [facility] odify By: roc Roach r DateTime : 06/22/20 15 03:00:00 PM Not Available Not Available Not Available aspirin 81 mg chewable tablet chew 1 tablet by oral route every day 12/04 completed Prescrib ed Elsewher e: Yes Loca tion: [facility] odify By: abhinav Roach r DateTime [...] Elsewher e: No Locat ion: [facility] [facility] odify By: camille Encounte r DateTime : 02/12/20 16 12:00:00 PM Not Available Not Available Not Available buspirone 15 mg tablet take 1 tablet by oral route 2 times every day 01/22 completed Prescrib ed Elsewher e: No Locat ion: [facility] odify By: roc Roach r DateTime : 10/08/19 16 02:00:00 PM Not Available Not Available Not Available escitalop carlota 10 mg tablet 12/23 completed Not Available Not Available Not Available 12/23 completed Not Available Not Available Not Available PNV-DHA 27 mg iron-1 mg-300 mg capsule take 1 capsule by oral route every day 01/22 completed Prescrib ed Cindi e: No Locat ion: [facility] M odify By: orc partida DateTime : 06/22/20 03:00:00 PM Not [...] Updated DateTime 10/29/2020 172.72 cm 19 kg/m2 55292.05 g 109 mm[Hg] 77 mm[Hg] Shani Kolb [facility] 10:19:34 Date Recorded Body height Body mass index (BMI) Body weight Systolic blood pressure Diastolic blood pressure Provider Name and Address Organization Details Last Updated DateTime 12/23/2021 172.72 cm 19.3 kg/m2 17901.23 g 101 mm[Hg] 62 mm[Hg] Rolanda Sahu [facility] 2 10:37:36 Social History Question Answer Notes LastModified by Organizat ion Details LastModified Time Tobacco Smoking Status Never Smoker Rolanda Sahu null, [facility] 12/23/2021 10:38:25 Do You Have An Advance Directive? No [email or web address] Information n ot available 12/23/2021 Are You Blind Or Do You Have Difficulty Seeing? No Information n ot available 12/23/2021 What Is Your Level Of Caffeine Consumption? Occasional [email or web address] Information not available 12/23/2021 How Much Tobacco Do You Chew? None Information not available 12/23/2021 In The 14 Days Before Symptom Onset, Have You Had Close Contact With A Laboratory-confirm ed COVID-19 While That Case Was Ill? No [email or web address] Information n ot available 12/23/2021 In The 14 Days Before Symptom Onset, Have You Had Close Contact With A Person Who Is Under Investigation For COVID-19 While That Person Was Ill? No [email or web address] Information not available 12/23/2021 Have You Been To An Area Known To Be High Risk For COVID-19? Yes [email or web address] Information not available 12/23/2021 Are You Deaf Or Do You Have Serious Difficulty Hearing? No Information not available 12/23/2021 What Type Of Diet Are You Following? REGULAR [email or web address] Information n ot available 12/23/2021 What Is The Highest Grade Or Level Of School You Have Completed Or The Highest Degree You Have Received? HF23099-9 [email or web address] Information not available 12/23/2021 Are There Any Guns Present In Your Home? No [email or web address] Information not available 12/23/2021 Do You Use Protection During Sex? No [email or web address] Information not available 12/23/2021 Do You Use Your Seat Belt Or Car Seat Routinely? Yes [email or web address] Information not available 12/23/2021 Do You Have Smoke And Carbon Monoxide Detectors In Your Home? Yes [email or web address] Information not available 12/23/2021 How Much Tobacco Do You Smoke? No [email or web address] Information not available 12/23/2021 Do You Use Sunscreen Routinely? Yes [email or web address] Information not available 12/23/2021 Have You Used IV Drugs? No [email or web address] Information not available 12/23/2021 Do You Have Difficulty Walking Or Climbing Stairs? No [email or web address] Information not available 12/23/2021 Sex: Unknown Functional Status Question Answer Note LastModified by Organizat ion Details LastModified Time Do you use any illicit or recreational drugs? No [email or web address] Information not available 12/23/2021 What is your level of alcohol consumption? None [email or web address] Information not available 12/23/2021 Are you able to walk? YESWOREST [email or web address] Information not available 12/23/2021 Are you able to care for yourself? 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 No [email or web address] Information not available 12/23/2021 What is your exercise level? Moderate [email or web address] Information not available 12/23/2021 Mental Status Question Answer Note LastModified by Organization D etails LastModified Time Do you feel stressed (tense, restless, nervous, or anxious, or unable to sleep at night)? [id number] [email or web address] Information not available 12/23/2021 Family History Relationship Description Onset Age of this Age Resolved Age Notes LastModified by Organization Details LastModified Time Father No current problems or disability [email or web address] Not available 10/25 11:51:33 Mother No current problems or disability Not available 10/25 11:51:33 Mother Mesothelioma (malignant, clinical disorder) Not available 12/25 19:54:38 Medical History Condition Response Allergies (Food, seasonal, environmental ) N Other Y Breast Cancer N Drug/Latex Allergies/Reactions N Blood Transfusion N Lung Disease N Dermatologic Disorders N Defects or Inherited Disease N Breast Problem N Gestational Diabetes N Hematologic disorders N Anesthesia Complications N History of STI Y Deep Vein Thrombosis N Polycystic ovary syndrome N Anxiety Disorder Y Autoimmune disease N Arthritis N Polyps N Infertility N History of abnormal pap N Acid Reflux (GERD) N Cancer N Varicosities N Stroke N [...] SNOMED-CT Code Diagnosis ICD10 Code Diagnosis Note [id number] Jessica AguilarJEFF [place] [address] [address] 10/29/2020 10:07:40 10/29/2020 13:55:37 Gynecologic examination [id number] Z01.419 Take Calcium with Vitamin D 1200mg [...] if desired. Routine gy necologic examination done [id number] Z01.419 [id number] Kody Ayers MD [place] [address] [address] 10/30/2020 09:27:06 10/30/2020 14:49:49 Mechanical complication of intrauterine contraceptive device [id number] T83.39XA [id number] Jessicafany Aguilar CNM [place] [address] [address] 12/23/2021 10:26:29 12/24/2021 16:47:34 Gynecologic examination [id number] Z01.419 Z11.51 Take Calcium with Vitamin D [...] None Recorded Advance Directives Directive N: Payers Insurance Date Sequence Insurance Name Policy Number Policy Florian Covered Member ID Florian Member ID Guarantor Name 12/20/2021 1 [employer] [id number] Severino Hager [id number] Preeti Hager 12/23/2021 1 [facility] [id number] Severino Hager [id number] Preeti Hager Notes Date Note Type Note [...] depression; No anxiety; No PMDD Jessica diaz [facility] 10/29/2020 10:40:35 12/23/2021 text/html Annual GYNReport ed bypatient.Menstrua l cycle:amenorrhea d/t IUD Urinary symptoms:No hematuria; No incontinence Vulva:No genital lesion Vagina:Normal vaginal discharge Breast:No breast pain; No breast lump; No nipple discharge Sexual complaints:No sexual complaints; No pain during intercourse; Normal libido Menopausal Symptoms:No menopausal symptoms; Normal vaginal lubrication Psychological symptoms:No depression; No anxiety; No PMDD Jessicajesusita Aguilar [facility] 12/25/2021 06:52:08 OBGyn Episode Ob Episode Information Episode Created Date Number of Fetuses Patient Bloodtype Patient rh Status Prepregnancy Weight lbs Domestic Partner Domestic Partner Phone Father Name Bottom Loader Status 10/25/19 21 1 CLOSED Fetus Data [...] Domestic Partner Domestic Partner Phone Father Name Bottom Loader Status 10/25/19 21 1 CLOSED Fetus Data [...]
[2025-02-13 08:39] VITALS: BP 118/73; PULSE 90; RESP 16; TEMP 36.7; O2SAT 100; BMI 20.4
[2025-02-13 08:46] LABS: BEDSIDEPREGUCG Negative (Negative)
[2025-02-13] MEDS: LACTATED RINGERS 1,000 ML 150 ML IV CONT (08:50)
--- NOTE | 2025-02-13 09:13 | WPDANESEPPF ---
Anes - Initial Pre Proc Eval Procedure: Operation Date: 02/13/25 09:45 Proposed Procedures p Esophagogastroduodenoscopy - Dru Najera MD Date/Time: 02/13/25 09:13 Surgeon: Dru Najera MD Pre Op Diagnosis: Nausea, Dysphagia, unspecified Patient Data Age: 29 Gender: F Height: 1.75 m Weight: 62.8 kg Last Vital Signs Temp 36.7 C 02/13/25 08:39 Pulse 90 02/13/25 08:39 Resp 16 02/13/25 08:39 BP 118/73 02/13/25 08:39 Pulse Ox 100 02/13/25 08:39 O2 Del Method Room Air 02/13/25 08:39 Allergies Allergy/AdvReac Type Severity Reaction Status Date / Time No Known Allergies Allergy Verified 02/13/25 08:37 Home Medications ?Medication ?Instructions ?Recorded ?Confirmed ?Type pantoprazole 40 mg tablet,delayed 40 mg PO QAM 1 month #30 tabs 01/17/25 02/13/25 Rx release cetirizine 10 mg capsule (Allergy 10 mg PO DAILY PRN allergy symptoms 02/09/25 02/09/25 History Relief (cetirizine)) famotidine 40 mg tablet 40 mg PO QHS PRN acid reflux, 02/09/25 02/09/25 History NAUSEA Laboratory Tests 02/13/25 08:39 POC Urine HCG, Qual Negative (Negative) Patient hx anesthesia problems: none Family hx anesthesia problems: none Results Review: All pre-operative results and documents have been reviewed as part of the pre-operative evaluation. [facility] Past Medical History Medical History Throat clearing Dysphagia Loose stools Kyphosis Anxiety Pre-eclampsia Herpes Family History Family History Grandparent Macular degeneration Arthritis Social History Social History Smoking status: Never smoker Second hand tobacco smoke exposure: No Alcohol intake: never Substance use: never Substance use type: does not use Living arrangements: with family Gender identity (if verbalized by the patient): Female Spiritual care concerns: No Anes - Eval Final PreProcedure Day of Procedure 02/13/25 09:13 Patient weight: normal Heart: regular rate and rhythm Lungs: clear to auscultation Airway: Mallampati scale class II Neurological: alert and oriented Last oral intake: >/= 8 hours ASA classification: II Emergent: no Anesthetic plan: proceed Anesthesia type and monitoring: general GIVS and standard monitoring Results Review: All pre-operative results and documents have been reviewed as part of the pre-operative evaluation. Informed Consent: The patient's anesthetic plan and its attendant risks and benefits were discussed with the patient/family/POA. Questions were solicited and answers provided to the satisfaction of the patient/family/POA.
--- NOTE | 2025-02-13 09:17 | PM.HPGS ---
History of Present Illness History of Present Illness Consent: Risks, benefits, and alternatives have been discussed and questions answered. Patient agrees to proceed with procedure. Chief complaint: Nausea, Dysphagia, unspecified Narrative: Preeti Hager is a 29 year old female here for first EGD, gerd and dyspepsia has improved with ppi daily, also loose stools. Review of Systems Review of Systems: All systems reviewed & are unremarkable except as noted in HPI and below PMFSH Past Medical History Medical History Throat clearing Dysphagia Loose stools Kyphosis Anxiety Pre-eclampsia Herpes Family History Family History Grandparent Macular degeneration Arthritis Social History Social History Smoking status: Never smoker Second hand tobacco smoke exposure: No Alcohol intake: never Substance use: never Substance use type: does not use Living arrangements: with family Gender identity (if verbalized by the patient): Female Spiritual care concerns: No Meds Home Medications and Allergies Home Medications ?Medication ?Instructions ?Recorded ?Confirmed ?Type pantoprazole 40 mg tablet,delayed 40 mg PO QAM 1 month #30 tabs 01/17/25 02/13/25 Rx release cetirizine 10 mg capsule (Allergy 10 mg PO DAILY PRN allergy symptoms 02/09/25 02/09/25 History Relief (cetirizine)) famotidine 40 mg tablet 40 mg PO QHS PRN acid reflux, 02/09/25 02/09/25 History NAUSEA Allergies Allergy/AdvReac Type Severity Reaction Status Date / Time No Known Allergies Allergy Verified 02/13/25 08:37 Vital Signs Vital Signs - 24 hr 02/13/25 08:39 Temperature 98.1 F Pulse Rate 90 Respiratory Rate 16 Blood Pressure 118/73 Pulse Oximetry 100 Oxygen Delivery Room Air Exam Const: General: comfortable and no acute distress HENMT: Face/Nose/Sinus: Normal nares present Eyes: General: appearance normal, both eyes and all related structures Neck: Neck: no JVD Resp: Auscultation: clear to auscultation bilaterally Cardio: Rate: regular rate Rhythm: regular rhythm GI: Inspection: non-distended GI Palp: Yes Soft to palpation Skin: General skin exam: normal color Neuro: General: gait normal Speech: normal speech Extrem: General: normal to inspection Psych: Mental Status: mental status grossly normal Assessment and Plan Assessment and plan (1) GERD (gastroesophageal reflux disease): Code(s): K21.9 - Gastro-esophageal reflux disease without esophagitis Status: Acute Assessment and Plan: egd with bx (2) Chronic nausea: Code(s): R11.0 - Nausea Status: Acute (3) Loose stools: Code(s): R19.5 - Other fecal abnormalities Status: Acute
--- NOTE | 2025-02-13 09:25 | S_PTH ---
PATIENT: Preeti Hager LOC: [facility] [place]#:[id number] AGE/SX: 29/F ROOM: RE02/13/[address]: Dru Najera MD : 1995 BED: DIS: 02/13/2025 SPEC #: [id number] RECD: 02/13/25 10:47 STATUS: CARISSA REAnn #: [id number] JAYDEN: 02/13/25 09:[address]: Dru Najera DEPT: [facility] Surgical RECD BY: Chichi Eli ENTERED: 02/13/25 10:48 SP TYPE: Surgical OTHR DR: Kevin Brown DO Tissues: A - Small Bowel Bx B - Gastric Biopsy C - Esophageal Biopsy Procedures: Hematoxylin and Eosin Stain Gross and Microscopic Level 4
[2025-02-13 09:26] VITALS: BP 101/62; PULSE 80; RESP 18; O2SAT 100
[2025-02-13 09:36] VITALS: BP 93/59; PULSE 75; RESP 19; O2SAT 100
[2025-02-13 09:46] VITALS: BP 119/71; PULSE 75; RESP 17; O2SAT 100
== END 2025-02-13 10:02 | disposition home or self-care (01) ==
PROVIDERS: Anesthesiology; PCP Family Medicine; Referring Provider Nurse Practitioner Family; Visit Provider Internal Medicine Gastroenterology
PROC: 0DJ08ZZ Inspection of Upper Intestinal Tract, Via Natural or Artificial Opening Endoscopic (ICD-10-PCS; CPT 43239; principal; 2025-02-13 09:45)
DX: K21.00 Gastro-esophageal reflux disease with esophagitis, without bleeding (principal); K44.9 Diaphragmatic hernia without obstruction or gangrene; K29.50 Unspecified chronic gastritis without bleeding
CPT/HCPCS: 43239; 88305; J2704; J7120

== ENCOUNTER 2025-05-10 14:25 | Outpatient (CLI) | payer OTHER, SELFPAY ==
[2025-05-12 15:26] LABS: TB Skin Test Erythema 0 mm; TB Skin Test Induration 0 mm (0-10); TB Skin Test Site Left Arm
[2025-05-12 15:27] LABS: TB Skin Test Interpretation Negative (Negative)
== END 2025-05-10 14:26 | disposition home or self-care (01) ==
LOC: CHSLAB 14:26
PROVIDERS: PCP Nurse Practitioner Family; Visit Provider Nurse Practitioner Family
DX: Z02.1 Encounter for pre-employment examination (principal)
CPT/HCPCS: 36415; 86580

== ENCOUNTER 2025-06-06 08:38 | Outpatient (CLI) | payer OTHER, SELFPAY ==
--- NOTE | ~2025-06-06 | NM_ITS ---
EXAMINATION: NM_HEPATWP_NM DATE: 06/06/2025 10:26 INDICATION: Postprandial abdominal pain. Chronic nausea. COMPARISON: None. TECHNIQUE: 5.1 mCi Tc-99m mebrofenin (Choletec) was administered intravenously. Scintigraphic images of the abdomen were obtained for one hour. 1.2 mcg sincalide (Kinevac) was administered by slow intravenous infusion, and imaging was continued for 30 minutes. Gallbladder ejection fraction was calculated by the technologist. FINDINGS: There is normal clearance of radiotracer from the blood pool. There is homogeneous tracer uptake by the liver. Activity progresses to the gallbladder and bowel. The gallbladder ejection fraction (GBEF) is 47% (normal 10-90%, but most patient with gallbladder dysfunction have GBEF < 35% which does overlap with the normal range). IMPRESSION: 1. Normal hepatobiliary scan Reviewed, dictated and finalized at location A.
--- OUTSIDE RECORDS SUMMARY | 2025-06-06 08:49 | XMS_ITS | Patient Health Record ---
Author Organization [facility] Address [address] [place] [address] Care Team Providers Care Hvac Technician Residential Name Role Phone Albert Moncada Unavailable [phone] Reason For Referral No Information Medications Medication SIG (Take, Route, Frequency, Duration) Notes Start Date End Date Status Trintellix 20 MG Tablet Oral 03/13/2021 Active Multivitamin Adults Tablet Oral 03/13/2021 Active MIRENA 21 MCG/24 HR (UP TO 8 YEARS) 52 MG INTRAUTERINE DEVICE *Reorder from [employer] for eRx and Interaction Alerts* 03/13/2021 Active Ergocalciferol 1.25 MG (20517 UT) Capsule Oral 03/13/2021 Active Immunizations Vaccine Route Administration Date Status Comme nts DTP Unknown 1995 Administered DTP Unknown 01/31/1994 Administered DTP-Hib Unknown 06/06/1994 Administered DTP-Hib Unknown 01/30/1995 Administered Hep B, adolescent or pediatr ic (11-19), 3 dose schedule Unknown 1993 Administered Hep B, adolescent or pediatr ic (11-19), 3 dose schedule Unknown 06/06/1994 Administered Hep B, adolescent or pediatr ic (11-19), 3 dose schedule Unknown 01/30/1995 Administered Hib, unspecified formulation Unknown 1993 Adminis tered Hib, unspecified formulation Unknown 01/31/1994 Adminis tered Influenza virus vaccine, quadrivalent (IIV4), split virus, 0.25 mL dosage Unknown 05/31/2020 Administered MMR Unknown 01/30/1995 Administered Novel Gmmewvgex-S4G3-01, preservative free Unknown 06/05/2015 Administered Novel Vkefezyuk-B5E3-00, preservative free Unknown 06/04/2016 Administered Novel Avkqfzvar-T3H7-78, preservative free Unknown 06/10/2017 Administered OPV Unknown 1993 Administered OPV Unknown 01/31/1994 Administered OPV Unknown 06/06/1994 Administered Tdap Unknown 07/13/2008 Administered Tdap Unknown 12/12/2015 Administered Social History Social History Additional Details Category Social Info Options Details Migrated Social History Migrated Social History Alcohol Intake: None 10/29/2020,Tobacco Years: Never smoker 10/29/2020,Smoking Status: 0 03/13/2021 Plan Of Treatment No Information Insurance Providers Payer Name Payer Address Payer Phone Subscriber Number Group Number Insured Name Patient Relationship to Insured Coverage Start Date Coverage End Date [facility] [address] [address] [place] [address] [phone] [id number] LEW ULRICH Spouse - patient is the spouse of the insured
== END 2025-06-06 08:39 | disposition home or self-care (01) ==
PROVIDERS: PCP Nurse Practitioner Family; Visit Provider Nurse Practitioner Family
DX: R11.0 Nausea (principal); R10.9 Unspecified abdominal pain
CPT/HCPCS: 78227; A9537; J2805